=== PATIENT | female | born 1950 | race Caucasian/White ===

== ENCOUNTER 2019-12-13 20:14 | Inpatient (IN) | payer SELFPAY ==
--- NOTE | 2019-12-13 20:32 | PDOC ---
History of Present Illness - General Chief Complaint: Weakness Stated Complaint: WEAKNESS History Source: Patient, EMS, Old Records Exam Limitations: No Limitations - History of Present Illness Initial Comments: 12/13/19 20:31 Chitra Braun is a Yi-speaking 69F with PMH significant for aortic stent plac ement one month ago, HTN, CKD, anemia, COVID-19 c/b PE on Coumadin, BIBA for generalized weakness. Kirsty Martin is daughter who lives with patient, #[phone]. 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 Poor oral intake but tolerating PO. Denies sick contacts, fever, chest pain, SOB, abd pain, C/D. Denies urinary sx but has low urine output. Had this problem a week ago, was admitted at [facility] for this. Ascending aortic repair done at [facility] ~a month ago. Last known EF ~40%. Denies any alcohol/drugs/tobacco. Takes many medications but does not know what they are, taking daily. Past History - Medical History Allergies/Adverse Reactions: Allergies Allergy/AdvReac Type Severity Reaction Status Date / Time No Known Allergies Allergy Verified 12/13/19 20:22 Home Medications: Ambulatory Orders Apixaban [Eliquis] 5 mg PO BID 11/24/19 Aspirin [Aspirin EC] 81 mg PO DAILY 11/24/19 Carvedilol [Coreg -] 25 mg PO BID 11/24/19 Famotidine 20 mg PO DAILY 11/24/19 Ferrous Sulfate 325 mg PO DAILY 11/24/19 Furosemide [Lasix] 40 mg PO DAILY 11/24/19 Hydralazine HCl 10 mg PO TID 11/24/19 Irbesartan [Avapro] 300 mg PO DAILY 11/24/19 Isosorbide Mononitrate [Isosorbide Mononitrate ER] 30 mg PO DAILY 11/24/19 Cardiac Disorders: (CHF) COPD: No HTN: Yes - Surgical History Abdominal Surgery: Yes (Thoracic Aorta repair(Ascending aorta stent) - Reproductive History Is Patient Now?: No - Immunization History Immunization Up to Date: Yes - Psycho-Social/Smoking History Smoking History: Never smoked Have you smoked in the past 12 months: No Information on smoking cessation initiated: No - Substance Abuse Hx (Audit-C & DAST Scrn) How often the patient has a drink containing alcohol: Never Score: In Men: 4 or > Positive; In Women: 3 or > Positive: 0 Screen Result (Pos requires Nsg. Audit-10AR): Negative In the last yr the pt used illegal drug/Rx for NonMed reason: No Score: Yes response is considered Positive: 0 Screen Result (Positive result requires Nsg. DAST-10): Negative Review of Systems - Review of Systems Able to Perform ROS?: Yes Constitutional: Yes: Weakness. No: Diaphoresis, Fever HEENTM: No: Symptoms Reported Respiratory: No: Symptoms reported Cardiac (ROS): No: Symptoms Reported ABD/GI: No: Symptoms Reported : No: Symptoms Reported Musculoskeletal: No: Symptoms Reported Integumentary: No: Symptoms Reported Endocrine: No: Symptoms Reported Hematologic/Lymphatic: No: Symptoms Reported All Other Systems: Reviewed and Negative *Physical Exam - Vital Signs Last Vital Signs Temp Pulse Resp BP Pulse Ox 73 18 112/59 L 100 12/13/19 20:22 12/13/19 20:22 12/13/19 20:22 12/13/19 20:22 - Physical Exam General Appearance: Yes: Nourished, Other (resting in bed in NAD, but appears very tired). No: Appropriately Dressed, Apparent Distress, Obese HEENT: positive: EOMI, LIZETT, Normal ENT Inspection, Normal Voice, Symmetrical, Pharynx Normal, Hearing Grossly Normal. negative: Scleral Icterus (R), Scleral Icterus (L), Pharyngeal Erythema, Tonsillar Exudate, Tonsillar Erythema Neck: positive: Normal Thyroid, Supple. negative: Tender, Rigid, Lymphadenopathy (R), Lymphadenopathy (L), Tender lateral, Tender midline Respiratory/Chest: positive: Lungs Clear, Normal Breath Sounds. negative: Chest Tender, Respiratory Distress, Accessory Muscle Use, Labored Respiration, Rapid RR, Decreased Breath Sounds, Crackles, Rales, Rhonchi, Stridor, Wheezing Cardiovascular: positive: Regular Rhythm, Regular Rate. negative: Murmur, Tachycardia Gastrointestinal/Abdominal: positive: Normal Bowel Sounds, Tender (LLQ), Flat, Soft. negative: Organomegaly, Pulsatile Mass, Guarding, Rebound Musculoskeletal: positive: Normal Inspection. negative: CVA Tenderness, Decreased Range of Motion, Vertebral Tenderness Extremity: positive: Normal Capillary Refill, Normal Inspection, Normal Range of Motion, Pelvis Stable. negative: Tender, Pedal Edema, Swelling, Calf Tenderness Integumentary: positive: Normal Color, Dry Neurologic: positive: Fully Oriented, Alert, Normal Mood/Affect, Normal Response, Motor Strength 5/5. negative: Facial Droop, Sensory Deficit ED Treatment Course - LABORATORY CBC & Chemistry Diagram: 12/13/19 Unknown 12/13/19 Unknown Medical Decision Making - Medical Decision Making 12/13/19 20:31 Patient presents with generalized weakness, has known history of ascending aortic aneurysm repair, EF 40%, anemia, CKD not on HD, PE on AC. Per chart review formerly on Eliquis, ? change to Coumadin, patient unclear on which medicines she takes. No obvious pathology noted on exam, VSS, but has many possible etiologies for weakness including anemia, CKD, cardiac pathology such as pericardial effusion or CHF, hypothyroidism. Rectal temp 98.9F. Getting labs, CXR/ECG, UA/UC. Given extensive history, merits admission for further evaluation. 12/13/19 21:33 Labs notable for: - WBC 8.4, higher than normal, low likely 2/2 CKD - Coags WNL - Cr 5.5, up from 5.0 prior, consistent with ESRD with eGFR ~8. - trop 0.06. at baseline leak per prior labs - BNP 97603.9, elevated consistent with CHF but decreased from 2 weeks prior. 12/13/19 21:41 CXR shows large heart with aortic stent in place, possible bilateral pleural effusions. Per prior CT 2 weeks ago has known L>R pleural effusions and pericardial effusion that explains cardiomegaly. 12/13/19 21:50 ECG low voltage, NSR with incomplete RBBB, HR 66, QTc 507, no MUNDO/D or TWI. 12/13/19 21:59 Patient merits admission for worsening renal function, known aortic stenting and low EF, anemia, evidence of CHF without overload on exam, further evaluation of pleural effusions and cardiology evaluation. 12/13/19 23:17 Discussed case with admitting team, accepts for admission to [facility]. Discharge - Discharge Information Problems reviewed: Yes Clinical Impression/Diagnosis: Weakness, ESRD (end stage renal disease), Pleural effusion Anemia Qualifiers: Anemia type: unspecified type Qualified Code(s): D64.9 - Anemia, unspecified CHF (congestive heart failure) Qualifiers: Heart failure type: unspecified Heart failure chronicity: chronic Qualified Code(s): I50.9 - Heart failure, unspecified Condition: Guarded - Admission Yes - Follow up/Referral - Patient Discharge Instructions - Post Discharge Activity
[2019-12-13] MEDS ORDERED: SODIUM CHLORIDE 0.9% 500 ML INFUS.BAG IV ONE (20:38)
[2019-12-13] MEDS ORDERED: ACETAMINOPHEN 1000 MG/100 ML VIAL (NON FORMULARY) IVPB ONE (20:45)
[2019-12-13] MEDS ORDERED: ONDANSETRON 4 MG/2 ML VIAL IVPUSH ONE (20:59)
[2019-12-13] MEDS ORDERED: FOLIC ACID INJECTION - 1 MG, THIAMINE HCL 100 MG, MULTIVIT INJECTION ADULT 10 ML in SOD... IVPB ONE (20:59)
[2019-12-13 21:04] LABS: BASO % 0.8 % (0-2.0); EOS % 3.5 % (0-4.5); HEMATOCRIT 25.6 % (32.4-45.2); HEMOGLOBIN 8.4 GM/dL (10.7-15.3); LYMPH % 13.8 % (8-40); MCH 27.5 pg (25.7-33.7); MCHC 32.7 g/dl (32.0-36.0); MEAN CELL VOLUME 83.9 fl (80-96); MEAN PLT VOLUME 9.3 fl (7.5-11.1); MONO % 10.6 % (3.8-10.2); NEUT % 71.3 % (42.8-82.8); PLATELET COUNT 226 K/MM3 (134-434); RBC 3.06 M/mm3 (3.60-5.2); RDW 18.9 % (11.6-15.6); WHITE BLOOD COUNT 5.4 K/mm3 (4.0-10.0)
--- OUTSIDE RECORDS SUMMARY | 2019-12-13 21:04 | XMS ---
:1950 Author [facility] Support Name Relationship Address Phone RE Unavailable Unavailable Unavailable RE Unavailable Unavailable Unavailable GONZALEZ DAUGHTER [address] [place] [address] GONZALEZ Child [address] [place] [address] Re-disclosure Warning The records that you are about to access may contain information from federally- assisted alcohol or drug abuse programs. If such information is present, then the following federally mandated warning applies: This information has been disclosed to you from records protected by federal confidentiality rules (42 CFR part 2). The federal rules prohibit you from making any further disclosure of this information unless further disclosure is expressly permitted by the written consent of the person to whom it pertains or as otherwise permitted by 42 CFR part 2. A general authorization for the release of medical or other information is NOT sufficient for this purpose. The Federal rules restrict any use of the information to criminally investigate or prosecute any alcohol or drug abuse patient.The records that you are about to access may contain highly sensitive health information, the redisclosure of which is protected by Article 27-F of the [facility] Public Health law. If you continue you may haveaccess to information: Regarding HIV / AIDS; Provided by facilities licensed or operated by the [facility] Office of Mental Health; or Provided by the [facility] Office for People With Developmental Disabilities. If such information is present, then the following [facility] mandated warning applies: This information has been disclosed to you from confidential records which are protected by state law. State law prohibits you from making any further disclosure of this information without the specific written consent of the person to whom it pertains, or as otherwise permitted by law. Any unauthorized further disclosure in violation of state law may result in a fine or correction sentence or both. A general authorization for the release of medical or other information is NOT sufficient authorization for further disclosure. Insurance Providers Payer name Policy type Policy ID Covered Covered alliance party's Policy P salvador / Coverage alliance party ID relationship to [place] [employer] ormation type winn LOCAL [id number] - [id number] [facility] SELF PAY SP INSURANCE Results ID Date Data Source [id number] 11/24/2019 03:41:00 PM EDT [facility] Name Value Range Interpretation Description Data Sup porting Code Source(s) Document(s ) SARS [facility] coronavirus 2 RNA This lab was ordered by [facility] and reported by [facility]. ID Date Data Source [id number] 11/13/2019 07:16:00 PM EDT [facility] Name Value Range Interpretation Description Data Sup porting Code Source(s) Document(s ) SARS-CoV-2 [facility] (COVID-19) RNA panel - Unspecified specimen by CELENA with probe detection This lab was ordered by [facility] and reported by [facility]. ID Date Data Source [id number] 11/12/2019 03:38:00 PM EDT [facility] Name Value Range Interpretation Description Data Sup porting Code Source(s) Document(s ) SARS-CoV-2 [facility] (COVID-19) RNA panel - Unspecified specimen by CELENA with probe detection This lab was ordered by [facility] and reported by [facility]. ID Date Data Source [id number] 11/06/2019 09:20:00 AM EDT [facility] Name Value Range Interpretation Description Data Sup porting Code Source(s) Document(s ) SARS-CoV-2 [facility] (COVID-19) RNA panel - Unspecified specimen by CELENA with probe detection This lab was ordered by [facility] and reported by [facility]. ID Date Data Source [id number] 11/03/2019 09:50:00 AM EDT [facility] Name Value Range Interpretation Description Data Sup porting Code Source(s) Document(s ) SARS-CoV-2 [facility] (COVID-19) RNA panel - Unspecified specimen by CELENA with probe detection This lab was ordered by [facility] and reported by [facility]. ID Date Data Source [id number] 10/30/2019 01:05:00 AM EDT [facility] Name Value Range Interpretation Description Data Sup porting Code Source(s) Document(s ) SARS-CoV-2 [facility] (COVID-19) RNA panel - Unspecified specimen by CELENA with probe detection This lab was ordered by [facility] and reported by [facility]. ID Date Data Source [id number] 10/29/2019 05:58:00 AM EDT [facility] Name Value Range Interpretation Description Data Sup porting Code Source(s) Document(s ) SARS-CoV-2 [facility] (COVID-19) RNA panel - Unspecified specimen by CELENA with probe detection This lab was ordered by [facility]) and reported by [facility]. ID Date Data Source [id number] 10/28/2019 01:52:00 AM EDT [facility] Name Value Range Interpretation Code Description Data Diann rce(s) Supporting Document(s ) Overall [facility] Result: This lab was ordered by [facility] and reported by [facility]. ID Date Data Source [id number] 07/23/2019 07:36:00 PM EDT [facility] Name Value Range Interpretation Code Description Data Diann rce(s) Supporting Document(s ) Overall [facility] Result: This lab was ordered by [facility] and reported by [facility]. Procedure
[2019-12-13] MEDS ORDERED: ACETAMINOPHEN INJECTION 100 ML IVPB ONE (21:11)
[2019-12-13 21:17] LABS: INR 0.98 (0.83-1.09); PROTHROMBIN TIME (PATIENT) 12.1 SEC (9.7-13.0)
[2019-12-13 21:20] LABS: ACTIVATED PTT 27.7 SECONDS (25.2-36.5)
[2019-12-13 21:30] LABS: POTASSIUM 3.6 mmol/L (3.5-5.1)
[2019-12-13 21:32] LABS: CALCIUM 8.6 mg/dL (8.5-10.1)
[2019-12-13 21:33] LABS: ALBUMIN 2.5 g/dl (3.4-5.0); BLOOD UREA NITROGEN 83.8 mg/dL (7-18)
[2019-12-13 21:36] LABS: CREATININE 5.5 mg/dL (0.55-1.3)
[2019-12-13 21:38] LABS: BILIRUBIN,TOTAL 0.3 mg/dL (0.2-1); TOT PROT 6.6 g/dl (6.4-8.2)
[2019-12-13 21:42] LABS: N-TERMINAL BNP 14845.9 pg/ml (5-125)
[2019-12-13] MEDS ORDERED: FUROSEMIDE 40 MG/4 ML INJECTABLE VIAL IVPUSH ONE (22:13)
[2019-12-13] MEDS ORDERED: FUROSEMIDE 40 MG/4 ML INJECTABLE VIAL ONE (22:29)
--- NOTE | 2019-12-13 23:07 | PN ---
Teaching Attending Note Name of Resident: Ed Cooper ATTENDING PHYSICIAN STATEMENT I saw and evaluated the patient. I reviewed the resident's note and discussed the case with the resident. I agree with the resident's findings and plan as documented. SUBJECTIVE: Patient is a 69 year old woman with a PMH of Aortic stent placement one month a go, Pericardial effusion, HTN, ESRD, Anemia, COVID-19 complicated by PE (on ?Coumadin) brought to the for generalized weakness. 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 Poor oral intake but tolerating PO. Had this problem a week ago, was admitted at [facility] for this. Ascending aortic repair done at [facility] about a month ago. Patient denies chest pain, shortness of breath, abdominal pain, headache, palpitations, fever, chills, nausea, vomiting, diarrhea, constipation, dysuria, frequency, urgency, melena, hematochezia or hematuria. Denies alcohol, tobacco or illicit drug use. No sick contacts or recent travels. Family history is unremarkable. OBJECTIVE: Alert Vital Signs Period Temp Pulse Resp BP Sys/Marin Pulse Ox Last 24 Hr 98.8 F 67-73 17-18 112-150/59-82 99-100 HEENT: No Jaundice, eye redness or discharge, PERRLA, EOMI. Normocephalic, atraumatic. External ears are normal and hearing is grossly intact. No nasal discharge. Neck: Supple, nontender. No palpable adenopathy or thyromegaly. No JVD Chest: Good effort. Clear to auscultation and percussion. Heart: Regular. No S3, rub or murmur Abdomen: Not distended, soft, nontender and no HSM. No rebound or guarding. Normal bowel sounds. Ext: Peripheral pulses intact. No leg edema. Skin: Warm and dry. No petechiae, rash or ecchymosis. Neuro: Alert. Oriented x3. CN 2-12 grossly intact. Sensation grossly intact in all four extremities and DTR are symmetric. Psych: Appropriate mood and affect. Good insight. Home Medications Medication Instructions Recorded Apixaban [Eliquis] 5 mg PO BID 11/24/19 Aspirin [Aspirin EC] 81 mg PO DAILY 11/24/19 Carvedilol [Coreg -] 25 mg PO BID 11/24/19 Famotidine 20 mg PO DAILY 11/24/19 Ferrous Sulfate 325 mg PO DAILY 11/24/19 Furosemide [Lasix] 40 mg PO DAILY 11/24/19 Hydralazine HCl 10 mg PO TID 11/24/19 Irbesartan [Avapro] 300 mg PO DAILY 11/24/19 Isosorbide Mononitrate [Isosorbide 30 mg PO DAILY 11/24/19 Mononitrate ER] Abnormal Lab Results 12/13/19 12/13/19 Unknown Unknown RBC 3.06 L Hgb 8.4 L Hct 25.6 L RDW 18.9 H Monocytes % 10.6 H Chloride 97 L BUN 83.8 H Creatinine 5.5 H Random Glucose 147 H Magnesium 3.0 H AST 38 H Creatine Kinase 301 H Troponin I 0.06 H B-Natriuretic Peptide 22661.9 H Albumin 2.5 L Current Medications Generic Name Dose Route Start Last Admin Trade Name Freq PRN Reason Stop Dose Admin Folic Acid 1 mg/ Thiamine HCl 1,000 mls @ 125 mls/hr 12/13/19 20:59 12/13/19 21:54 100 mg/ Multivitamins/Minerals IVPB 12/14/19 04:58 125 mls/hr 10 ml/ Sodium Chloride ONCE ONE Administration ASSESSMENT AND PLAN: 1. Weakness/ESRD/Anemia/CHF - Weakness likely multifactorial including sequelae of COVID-19 infection, uremia, CHF and anemia. Will get a head CT stat. CXR shows cardiomegaly, aortic stent, unfolded aorta with no evidence of acute lung disease. Urinalysis pending. ECHO from 12/05/2019 showed mild asymmetric LVH and LVEF of 50%. EKG shows NSR at 66/minute and QTc 507, IRBBB with no significant acute ischemic ST-T wave changes. Not significantly changed compared to prior EKG. Initial troponin is 0.06. Will avoid drugs that may prolong QTc. Elevated troponin may be due to diminished clearance and/or demand ischemia, but will rule out ACS. ?No longer on Eliquis. Will clarify current anticoagulation with her PCP. Will admit to telemetry, trend troponin, repeat EKG, get ECHO, carotid doppler, head CT, do speech and swallow evaluation, neurochecks and implement fall/aspiration/seizure precautions. Consult Cardiology/PT/Neurology. Consult Nephrology for ESRD care. For now will monitor urine output, avoid nephrotoxic agents such as NSAIDS, aminoglycosides, contrast dyes and certain Alternative medicine products. Low BP limits the use of IV Lasix. Will restrict dietary salt intake, monitor and replete electrolytes, get daily weight and consult Nephrology to arrange for hemodialysis. Viral testing for COVID-19 ordered and patient placed on airborne, droplet and contact isolation. Started on supplemental oxygen via nasal cannula. Will continue comprehensive care for all of patients comorbid conditions. 2. Hypoalbuminemia - Possibly due to combined effects of malnutrition and inflammation associated with comorbid conditions. Will ensure adequate dietary protein intake and also consult advertising assistant. Urinalysis pending. 3. Anemia Likely chiefly due to CKD. Will do basic anemia work up including serial stool guaiacs, reticulocyte count and iron studies. Would benefit from Procrit therapy once iron replete. 4. Hypertension Will hold antihypertensive drugs for now. Restart suitable outpatient antihypertensive drugs when clinically appropriate. Subsequently, will revise regimen to ensure [id number] excellent BP control. Patient counseled on the injurious effects of uncontrolled hypertension. Nonpharmacologic measures to control hypertension like weight loss, salt restriction and exercise stressed. Importance of adherence to treatment regimen and attainment of normotension emphasized. 5. DVT prophylaxis - Heparin 5000u sq tid. 6. Advance directives - Full code
--- OUTSIDE RECORDS SUMMARY | 2019-12-13 23:39 | XMS ---
:1950 Author Organization [facility] Support Name Relationship Address Phone RE, RETIRED Unavailable Unavailable Unavailable RE Unavailable Unavailable Unavailable SEPIDEH GONZALEZ DAUGHTER [address] [place] [address] SEPIDEH GONZALEZ Child [address] [place] [address] Re-disclosure Warning The records that you are [...] is protected by Article 27-F of the [facility] Public Health law. If you continue you may haveaccess to information: Regarding HIV / AIDS; Provided by facilities licensed or operated by the [facility] Office of Mental Health; or Provided by the [facility] Office for People With Developmental Disabilities. If such information is present, then the following [facility] mandated warning applies: This information has [...] law may result in a fine or mcfp sentence or both. A general authorization for the release of medical or other information is NOT sufficient authorization for further disclosure. Insurance Providers Payer name Policy type Policy ID Covered Covered democrat's Policy P salvador / Coverage democrat ID relationship to [employer] ormation type winn SELF PAY SP INSURANCE LOCAL [id number] - [id number] [facility] Results ID Date Data Source [id number] 11/24/2019 03:41:00 PM EDT [facility] Name Value Range Interpretation Description Data Sup porting Code Source(s) Document(s ) SARS [facility] coronavirus 2 RNA This lab was ordered by [facility] and reported by [facility]. ID Date Data Source [id number] 11/13/2019 07:16:00 PM EDT [facility] Name Value Range Interpretation Description Data Sup porting Code Source(s) Document(s ) SARS-CoV-2 [facility] (COVID-19) RNA panel - Unspecified specimen by CELENA with probe detection This lab was ordered by [facility] and reported by [facility]. ID Date Data Source [id number] 11/12/2019 03:38:00 PM EDT [facility] Name Value Range Interpretation Description Data Sup porting Code Source(s) Document(s ) SARS-CoV-2 [facility] (COVID-19) RNA panel - Unspecified specimen by CELENA with probe detection This lab was ordered by [facility] and reported by [facility]. ID Date Data Source [id number] 11/06/2019 09:20:00 AM EDT [facility] Name Value Range Interpretation Description Data Sup porting Code Source(s) Document(s ) SARS-CoV-2 [facility] (COVID-19) RNA panel - Unspecified specimen by CELENA with probe detection This lab was ordered by [facility]) and reported by [facility]. ID Date Data Source [id number] 11/03/2019 09:50:00 AM EDT [facility] Name Value Range Interpretation Description Data Sup porting Code Source(s) Document(s ) SARS-CoV-2 [facility] (COVID-19) RNA panel - Unspecified specimen by CELENA with probe detection This lab was ordered by [facility]) and reported by [facility]. ID Date Data Source [id number] 10/30/2019 01:05:00 AM EDT [facility] Name Value Range Interpretation Description Data Sup porting Code Source(s) Document(s ) SARS-CoV-2 [facility] (COVID-19) RNA panel - Unspecified specimen by CELENA with probe detection This lab was ordered by [facility]) and reported by [facility]. ID Date Data Source [id number] 10/29/2019 05:58:00 AM EDT [facility] Name Value Range Interpretation Description Data Sup porting Code Source(s) Document(s ) SARS-CoV-2 [facility] (COVID-19) RNA panel - Unspecified specimen by CELENA with probe detection This lab was ordered by [facility]) and reported by [facility]. ID Date Data Source [id number] 10/28/2019 01:52:00 AM EDT [facility] Name Value Range Interpretation Code Description Data Diann rce(s) Supporting Document(s ) Overall [facility] Result: This lab was ordered by [facility] and reported by [facility]. ID Date Data Source [id number] 07/23/2019 07:36:00 PM EDT [facility] Name Value Range Interpretation Code Description Data Diann rce(s) Supporting Document(s ) Overall [facility] Result: This lab was ordered by [facility] and reported by [facility]. Procedure
[2019-12-14 01:03] LABS: EPI CELLS 13 /uL (0-25.1); HYALINE CASTS 1 /uL (0-3.1); PH,URINE 5.5 (5.0-8.0); URINE APPEARANCE CLEAR; URINE BACTERIA 901 /uL (0-1359); URINE BILIRUBIN NEGATIVE (NEGATIVE); URINE COLOR YELLOW; URINE GLUCOSE (UA) NEGATIVE (NEGATIVE); URINE KETONE NEGATIVE (NEGATIVE); URINE LEUK ESTERASE 2+ (NEGATIVE); URINE NITRITE NEGATIVE (NEGATIVE); URINE PROTEIN 2+ (NEGATIVE); URINE RBC 21 /uL (0-23.9); URINE UROBILINOGEN 0.2 mg/dL (0.2-1.0); URINE WBC 211 /uL (0-25.8)
[2019-12-14 01:19] VITALS: BMI 26.9
--- NOTE | 2019-12-14 03:57 | HP ---
CHIEF COMPLAINT: Generalized weakness PCP: Vascular surgeon: Dr. Cervantes ([phone]) Heading Maker : Dr. Franky Marte HISTORY OF PRESENT ILLNESS: 69F w/ PMHx of CHF, Ascending AA s/p Aortic Stent (11/08), COVID19 w/ resultant PE, CKD, HTN, HLD, and Chronic Anemia presents to the ED after endorsing several hours of generalized weakness, lightheadedness, dizziness, changes in vision, decreased appetite and nausea w/o vomiting. Ptn was recently admitted to [facility] on 11/23, for epistaxis w/ generalized weakness, and an incidental finding of a large pericardial effusion w/ resultant transfer to [facility] for further management. Ptn did not have records on her at the time of presentation. Patient states she is taking 2 blood pressure medications but is unsure of what they were. Patient was previously on AC, and during her previous admission an IVC filter was placed. As per ptn and ptn's daughter, she is no longer on AC. Patient had received 1 banana bag in the ED prior to interview, and stated that the weakness had partially resolved. ER course was notable for: (1)CXR: Small left pleural effusion with a left lower lobe infiltrate There is significant cardiomegaly. There is a moderate to large pericardial effusion. Thickness varies between 1.1 and 2.1 cm (2)1 Banana Bag (3) Recent Travel: PAST MEDICAL HISTORY: As above PAST SURGICAL HISTORY: Aortic Stent placement [facility] 11/08 Social History: Smoking: None Alcohol: None Drugs: None Allergies No Known Allergies Allergy (Verified 12/13/19 20:22) HOME MEDICATIONS: Home Medications Medication Instructions Recorded Apixaban [Eliquis] 5 mg PO BID 11/24/19 Aspirin [Aspirin EC] 81 mg PO DAILY 11/24/19 Carvedilol [Coreg -] 25 mg PO BID 11/24/19 Famotidine 20 mg PO DAILY 11/24/19 Ferrous Sulfate 325 mg PO DAILY 11/24/19 Furosemide [Lasix] 40 mg PO DAILY 11/24/19 Hydralazine HCl 10 mg PO TID 11/24/19 Irbesartan [Avapro] 300 mg PO DAILY 11/24/19 Isosorbide Mononitrate [Isosorbide 30 mg PO DAILY 11/24/19 Mononitrate ER] REVIEW OF SYSTEMS CONSTITUTIONAL: Absent: fever, chills, diaphoresis, generalized weakness, malaise, loss of appetite, weight change HEENT: Absent: rhinorrhea, nasal congestion, throat pain, throat swelling, difficulty swallowing, mouth swelling, ear pain, eye pain, visual changes CARDIOVASCULAR: Absent: chest pain, syncope, palpitations, irregular heart rate, lightheadedness, peripheral edema RESPIRATORY: Absent: cough, shortness of breath, dyspnea with exertion, orthopnea, wheezing, stridor, hemoptysis GASTROINTESTINAL: Absent: abdominal pain, abdominal distension, nausea, vomiting, diarrhea, constipation, melena, hematochezia GENITOURINARY: Absent: dysuria, frequency, urgency, hesitancy, hematuria, flank pain, genital pain MUSCULOSKELETAL: Absent: myalgia, arthralgia, joint swelling, back pain, neck pain SKIN: Absent: rash, itching, pallor HEMATOLOGIC/IMMUNOLOGIC: Absent: easy bleeding, easy bruising, lymphadenopathy, frequent infections ENDOCRINE: Absent: unexplained weight gain, unexplained weight loss, heat intolerance, cold intolerance NEUROLOGIC: Absent: headache, focal weakness or paresthesias, dizziness, unsteady gait, seizure, mental status changes, bladder or bowel incontinence PSYCHIATRIC: Absent: anxiety, depression, suicidal or homicidal ideation, hallucinations. PHYSICAL EXAMINATION Vital Signs - 24 hr 12/13/19 12/13/19 12/13/19 20:22 20:45 21:41 Temperature 98.8 F Pulse Rate 73 Pulse Rate [ Radial] Respiratory 18 Rate Blood Pressure 112/59 L Blood Pressure [Left Arm] O2 Sat by Pulse 100 100 Oximetry (%) 12/13/19 12/13/19 12/14/19 22:33 23:49 00:08 Temperature Pulse Rate Pulse Rate [ 67 67 Radial] Respiratory 17 17 Rate Blood Pressure Blood Pressure 150/82 148/82 [Left Arm] O2 Sat by Pulse 99 99 99 Oximetry (%) 12/14/19 12/14/19 01:00 01:03 Temperature 97.9 F Pulse Rate 65 Pulse Rate [ Radial] Respiratory 20 Rate Blood Pressure 136/67 Blood Pressure [Left Arm] O2 Sat by Pulse 95 95 Oximetry (%) GENERAL: Awake, alert, and fully oriented, in no acute distress. HEAD: Normal with no signs of trauma. EYES: Pupils equal, round and reactive to light, extraocular movements intact, sclera anicteric, conjunctiva clear. No lid lag. EARS, NOSE, THROAT: Ears normal, nares patent, oropharynx clear without exudates. Moist mucous membranes. NECK: Normal range of motion, supple without lymphadenopathy, JVD, or masses. LUNGS: Breath sounds equal, clear to auscultation bilaterally. No wheezes, and no crackles. No accessory muscle use. HEART: Regular rate and rhythm, normal S1 and S2 without murmur, rub or gallop. ABDOMEN: Soft, nontender, not distended, normoactive bowel sounds, no guarding, no rebound, no masses. No hepatomegaly or splenomegaly. MUSCULOSKELETAL: Normal range of motion at all joints. No bony deformities or tenderness. No CVA tenderness. UPPER EXTREMITIES: 2+ pulses, warm, well-perfused. No cyanosis. No clubbing. No peripheral edema. LOWER EXTREMITIES: 2+ pulses, warm, well-perfused. No calf tenderness. No peripheral edema. NEUROLOGICAL: Normal speech. Normal gait. PSYCHIATRIC: Cooperative. Good eye contact. Appropriate mood and affect. SKIN: Warm, dry, normal turgor, no rashes or lesions noted, normal capillary refill. Laboratory Results - last 24 hr 12/13/19 12/13/19 12/13/19 00:00 Unknown Unknown WBC 5.4 RBC 3.06 L Hgb 8.4 L Hct 25.6 L MCV 83.9 MCH 27.5 MCHC 32.7 RDW 18.9 H Plt Count 226 D MPV 9.3 Absolute Neuts (auto) 3.8 Neutrophils % 71.3 Lymphocytes % 13.8 D Monocytes % 10.6 H Eosinophils % 3.5 Basophils % 0.8 Nucleated RBC % 0 PT with INR 12.10 INR 0.98 PTT (Actin FS) 27.7 Sodium Potassium Chloride Carbon Dioxide Anion Gap BUN Creatinine Est GFR (CKD-EPI)AfAm Est GFR (CKD-EPI)NonAf Random Glucose Calcium Magnesium Total Bilirubin AST ALT Alkaline Phosphatase Creatine Kinase Creatine Kinase Index CK-MB (CK-2) Troponin I B-Natriuretic Peptide Total Protein Albumin TSH Urine Color Yellow Urine Appearance Clear Urine pH 5.5 Ur Specific Mccoy 1.010 Urine Protein 2+ H Urine Glucose (UA) Negative Urine Ketones Negative Urine Blood Negative Urine Nitrite Negative Urine Bilirubin Negative Urine Urobilinogen 0.2 Ur Leukocyte Esterase 2+ H Urine WBC (Auto) 211 Urine RBC (Auto) 21 Urine Casts (Auto) 1 U Epithel Cells (Auto) 13 Urine Bacteria (Auto) 901 12/13/19 Unknown WBC RBC Hgb Hct MCV MCH MCHC RDW Plt Count MPV Absolute Neuts (auto) Neutrophils % Lymphocytes % Monocytes % Eosinophils % Basophils % Nucleated RBC % PT with INR INR PTT (Actin FS) Sodium 136 Potassium 3.6 Chloride 97 L Carbon Dioxide 29 Anion Gap 10 BUN 83.8 H Creatinine 5.5 H Est GFR (CKD-EPI)AfAm 8.42 Est GFR (CKD-EPI)NonAf 7.26 Random Glucose 147 H Calcium 8.6 Magnesium 3.0 H Total Bilirubin 0.3 AST 38 H ALT 27 Alkaline Phosphatase 105 Creatine Kinase 301 H Creatine Kinase Index 0.8 CK-MB (CK-2) 2.6 Troponin I 0.06 H B-Natriuretic Peptide 96949.9 H Total Protein 6.6 Albumin 2.5 L TSH 3.73 Urine Color Urine Appearance Urine pH Ur Specific Mccoy Urine Protein Urine Glucose (UA) Urine Ketones Urine Blood Urine Nitrite Urine Bilirubin Urine Urobilinogen Ur Leukocyte Esterase Urine WBC (Auto) Urine RBC (Auto) Urine Casts (Auto) U Epithel Cells (Auto) Urine Bacteria (Auto) ASSESSMENT/PLAN: 69F w/ PMHx of CHF, Ascending AA s/p Aortic Stent (11/08), COVID19 w/ resultant PE, CKD, HTN, HLD, and Chronic Anemia presents to the ED after endorsing several hours of generalized weakness, lightheadedness, dizziness, changes in vision, decreased appetite and nausea w/o vomiting. Admitted for generalized weakness likely multifactorial in origin. GENERALIZED WEAKNESS OF UNKNOWN ORIGIN POSSIBLY 2/2 DECREASED PO INTAKE vs Hx OF PERICARDIAL EFFUSION vs CHF -Previous admission on 11/24/2019, with resultant transfer to [facility]. -Admits to decreased PO intake -Improved w/ 1 bannana bag given in ED -Orthostatics Negative -CXR: Small left pleural effusion with a left lower lobe infiltrate There is significant cardiomegaly. There is a moderate to large pericardial effusion. Thickness varies between 1.1 and 2.1 cm -ECHO (12/05/2019): EF 50% Mild asymmetric LV hypertropy, mild hypkinesis of basal inferolateral wall; LA moderately dilated; moderate MR; mild TR; Moderate pericardial effusion w/ 20-25% variation in mitral inflow velocity. Does not meet criteria for tampenade. -Consult Cards -ECHO if Cardiology deems appropriate MILD TROPONEMIA LIKELY 2/2 DEMAND ISCHEMIA -Trops: 0.06 on Admission -EKG: NSR w/ incomplete RBBB; QTc 507 -Trend troponins for any increase HISTORY OF CONGESTIVE HEART FAILURE -No signs clinical signs of fluid overload -Necessary to obtain medication from PCP/[facility] AORTIC STENT PLACEMENT 2/2 ASCENDING AORTIC ANEYRISM REPAIR (11/08) -Dr. Cervantes at [facility] -Ptn not on any AC as per ptn and daughter -Cardiology consulted for input -Obtain [facility] history HISTORY OF COVID19 w/ PULMONARY EMBOLISM -DVT PPx w/ SCDs 2/2 prior bleeding episodes -IVC Filter placed at [facility] at last visit need to confirm w/ imaging -Patient not on oral home DVT meds as of recent [facility] admission last week -Clarify medications w/ [facility] or Pharmacy ([facility]) HISTORY OF CHRONIC KIDNEY DISEASE -Elevated Cr. Prior Admit: (3.7 - 5.0) --> 5.5 -Consult Nephro ANEMIA LIKELY 2/2 CKD -Monitor CBC -Transfuse <8 due prior cardiac hx PPx DVT: Heparin 5000 TID w/ careful monitoring for any bleeding due to prior admission epistaxis, IVC Filter placed at [facility] at last visit need to confirm w/ imaging; Will confirm AC w/ Cardiology FEN -No standing fluids -CMP, Mg, Phos -Diabetic/Sodium DISPO -Admit to tele for further monitoring, and obtain [facility] records Family Medical History Family History: As Documented Visit type - Medication Review Med list reviewed for High Risk Meds patients 65 and older: Yes - Emergency Visit Emergency Visit: Yes ED Registration Date: 12/13/19 Care time: The patient presented to the Emergency Department on the above date and was hospitalized for further evaluation of their emergent condition. - New Patient This patient is new to me today: Yes Date on this admission: 12/13/19 - Critical Care Critical Care patient: No ATTENDING PHYSICIAN STATEMENT I saw and evaluated the patient. I reviewed the resident's note and discussed the case with the resident. I agree with the resident's findings and plan as documented. SUBJECTIVE: OBJECTIVE: ASSESSMENT AND PLAN:
--- NOTE | 2019-12-14 07:55 | PN ---
Progress Note, Physician Chief Complaint: Seen and examined in bed. Recently discharged from [facility] after being treated for severe epistaxis in setting of apixaban-transfered to [facility] for pericardial effusion and treated with diuretics. Now with rising Cr above baseline. States she has extremely lethargy and nausea overnight. COVID + in 09/24 with subsquent negativ pcr-repeat now pending History of Present Illness: 69F w/ PMHx of CHF, Ascending AA s/p Aortic Stent (11/08), COVID19 w/ resultant PE, CKD, HTN, HLD, and Chronic Anemia presents to the ED after endorsing several hours of generalized weakness, lightheadedness, dizziness, changes in vision, decreased appetite and nausea w/o vomiting. Admitted for generalized weakness likely multifactorial in origin. - Current Medication List Current Medications: Active Medications Heparin Sodium (Porcine) (Heparin -) 5,000 unit SQ TID TAN - Objective Vital Signs: Vital Signs Temperature 97.9 F 12/14/19 01:03 Pulse Rate 73 12/14/19 03:14 Respiratory Rate 20 12/14/19 03:14 Blood Pressure 137/65 12/14/19 03:14 O2 Sat by Pulse Oximetry (%) 95 12/14/19 01:03 Constitutional: Yes: Well Nourished, No Distress, Calm Eyes: Yes: WNL, Conjunctiva Clear HENT: Yes: WNL, Atraumatic, Normocephalic Neck: Yes: WNL, Supple, Trachea Midline Cardiovascular: Yes: WNL, Regular Rate and Rhythm Respiratory: Yes: WNL, Regular, CTA Bilaterally, Diminished (at bases) Gastrointestinal: Yes: WNL, Normal Bowel Sounds ...Rectal Exam: Yes: Deferred Breast(s): Yes: WNL Extremities: Yes: WNL Edema: Yes Edema: LLE: Trace, RLE: Trace Peripheral Pulses WNL: Yes Peripheral Pulses: Left Radial: 2+, Right Radial: 2+, Left Doralis Pedis: 2+, Right Dorsalis Pedis: 2+, Left Femoral: 2+, Right Femoral: 2+ Integumentary: Yes: WNL Neurological: Yes: WNL, Alert, Oriented ...Motor Strength: WNL Psychiatric: Yes: WNL Labs: CBC, BMP 12/13/19 Unknown 12/13/19 Unknown INR, PTT INR 0.98 (0.83-1.09) 12/13/19 Unknown - ....Imaging Chest X-ray: Image Reviewed (no effusions/infiltartes) Other: Other (TTE:overall mild to moderately decreased left ventricular systolic function (diffuse); ejection fraction 43%,severe left ventricular dilatation,mild to moderate MR,normal right ventricular size,normal right ventricular function,no ,mild pulmonary hypertension small pericardial effusion,severe left atrial dilatation grade II diastolic dysfunction with elevated left atrial pressure) Problem List - Problems (1) Anemia Assessment/Plan: H/H in the setting on CKD c/t monitor Code(s): D64.9 - ANEMIA, UNSPECIFIED Qualifiers: Anemia type: unspecified type Qualified Code(s): D64.9 - Anemia, unspecified (2) ESRD (end stage renal disease) Assessment/Plan: Cr 12/11 on [facility] discharge 5.4-5.[address] carter holding lasix for now renal consultation place Code(s): N18.6 - END STAGE RENAL DISEASE (3) Weakness Assessment/Plan: increasing weakness since discharge from [facility] contributimg factors -dehydration from over diuresis and poo po intake PT ordered Code(s): R53.1 - WEAKNESS (4) Afib Assessment/Plan: episode of AF last admission [id number] score 7 c/wcoreg Code(s): I48.91 - UNSPECIFIED ATRIAL FIBRILLATION (5) Chronic systolic CHF (congestive heart failure) Assessment/Plan: chronic systolic HF as per [facility] records - EF 43% per records from [facility], with recent MPI negative 10/2019 - diuresed at [facility] with 120 mg IV BID and was discharged on lasix 80 mg PO BID - discharge Cr on 12/11 was 5.4 now 5.5 now appears euvolemic hold lasix for now with rising cr c/w hydralazine, imdur, coreg not on ARB due to CKD strict I/Os daily weights Code(s): I50.22 - CHRONIC SYSTOLIC (CONGESTIVE) HEART FAILURE (6) Elevated troponin Assessment/Plan: unlikely ACS indeterminate range, flat trend, EKG no ischemic changes in setting of CKD Code(s): R77.8 - OTHER SPECIFIED ABNORMALITIES OF PLASMA PROTEINS (7) HTN (hypertension) Assessment/Plan: cont carvedilol, hydralazine, isosorbide mononitrate irbesartan held in setting of CKD Code(s): I10 - ESSENTIAL (PRIMARY) HYPERTENSION (8) Pericardial effusion (noninflammatory) Assessment/Plan: moderate effusion seen on echo-transfered to [facility] treated with high dose diuretics now appears euvolemic Code(s): I31.3 - PERICARDIAL EFFUSION (NONINFLAMMATORY) (9) Prophylactic measure Assessment/Plan: FEN Fluids: poor PO intake Electrolytes: monitor & replete as needed Nutrition: cardiac diet DVT moderate risk sq heparin-close watch for bleeding Dispo Maintain as inpatient full code discharge planning Code(s): Z29.9 - ENCOUNTER FOR PROPHYLACTIC MEASURES, UNSPECIFIED (10) Pulmonary embolism Assessment/Plan: recent dx of BL PE in imaging from [facility]-10/25 asymptomatic on presentation lst admission-LE dopplers neg for dvt IVCF placed Code(s): I26.99 - OTHER PULMONARY EMBOLISM WITHOUT ACUTE COR PULMONALE (11) Status post endoscopic repair of thoracic aortic aneurysm (TAA) Assessment/Plan: s/p TEVRA from L SCA to SMA, embolization of celiac artery and repair of sarah common femoral artery 11/07/2019, Code(s): Z86.79 - PERSONAL HISTORY OF OTHER DISEASES OF THE CIRCULATORY SYSTEM; Z98.890 - OTHER SPECIFIED POSTPROCEDURAL STATES (12) Suspected COVID-19 virus infection Assessment/Plan: COVID Suspicion low On RA strict airborne/droplet precautions until resulted Code(s): Z20.828 - CONTACT W AND EXPOSURE TO OTH VIRAL COMMUNICABLE DISEASES Visit type - Emergency Visit Emergency Visit: Yes ED Registration Date: 12/13/19 Care time: The patient presented to the Emergency Department on the above date and was hospitalized for further evaluation of their emergent condition. - New Patient This patient is new to me today: Yes Date on this admission: 12/14/19 - Critical Care Critical Care patient: No - Discharge Referral Referred to [facility] No - Medication Review Med list reviewed for High Risk Meds patients 65 and older: Yes
[2019-12-14] MEDS: HEPARIN NA (PORCINE) 5,000 UNITS/ML 1ML VIAL SQ SCH ×3 (09:28→21:41)
[2019-12-14] MEDS: CARVEDILOL 25 MG TABLET (FP) PO SCH ×2 (09:28→21:41)
[2019-12-14] MEDS: ISOSORBIDE MONONITRATE 30 MG TAB.SR.24H (FP) PO SCH (09:28)
[2019-12-14 09:52] LABS: EPI CELLS 8 /uL (0-25.1); HYALINE CASTS 0 /uL (0-3.1); URINE APPEARANCE CLEAR; URINE BACTERIA 83 /uL (0-1359); URINE BILIRUBIN NEGATIVE (NEGATIVE); URINE COLOR YELLOW; URINE GLUCOSE (UA) NEGATIVE (NEGATIVE); URINE KETONE NEGATIVE (NEGATIVE); URINE LEUK ESTERASE NEGATIVE (NEGATIVE); URINE NITRITE NEGATIVE (NEGATIVE); URINE PROTEIN 1+ (NEGATIVE); URINE RBC 25 /uL (0-23.9); URINE UROBILINOGEN 0.2 mg/dL (0.2-1.0); URINE WBC 10 /uL (0-25.8)
[2019-12-14] MEDS ORDERED: LOSARTAN POTASSIUM 50 MG TABLET PO SCH (10:00)
[2019-12-14] MEDS ORDERED: FUROSEMIDE 40 MG TABLET (FP) PO SCH ×3 (10:00→17:07)
--- NOTE | 2019-12-14 11:09 | EKG ---
Test Reason : Blood Pressure : / mmHG Vent. Rate : 066 BPM Atrial Rate : 066 BPM P-R Int : 150 ms QRS Dur : 092 ms QT Int : 484 ms P-R-T Axes : 046 -21 028 degrees QTc Int : 507 ms NORMAL SINUS RHYTHM INCOMPLETE RIGHT BUNDLE BRANCH BLOCK PROLONGED QT ABNORMAL ECG WHEN COMPARED WITH ECG OF 24-NOV-2019 11:10, NO SIGNIFICANT CHANGE WAS FOUND Confirmed by Timbo Zee MD ([id number]) on 12/14/2019 11:09:01 AM Referred By: Confirmed By:Timbo Zee MD
[2019-12-14 12:09] LABS: BASO % 0.7 % (0-2.0); EOS % 3.5 % (0-4.5); HEMATOCRIT 23.7 % (32.4-45.2); HEMOGLOBIN 7.8 GM/dL (10.7-15.3); MCH 27.6 pg (25.7-33.7); MCHC 32.9 g/dl (32.0-36.0); MEAN PLT VOLUME 9.3 fl (7.5-11.1); MONO % 9.6 % (3.8-10.2); NEUT % 74.2 % (42.8-82.8); PLATELET COUNT 209 K/MM3 (134-434); RBC 2.82 M/mm3 (3.60-5.2); RDW 18.9 % (11.6-15.6); WHITE BLOOD COUNT 5.1 K/mm3 (4.0-10.0)
[2019-12-14 12:16] LABS: INR 0.99 (0.83-1.09)
[2019-12-14 12:30] LABS: POTASSIUM 3.6 mmol/L (3.5-5.1)
[2019-12-14 12:32] LABS: CALCIUM 8.9 mg/dL (8.5-10.1)
[2019-12-14 12:33] LABS: ALBUMIN 2.3 g/dl (3.4-5.0); BLOOD UREA NITROGEN 77.1 mg/dL (7-18)
--- NOTE | 2019-12-14 12:33 | CON.CARD ---
Cardiology Consult (text) - Consultation Consultation Note: Consult Specialty:: cardiology Referred by:: medicine Reason for Consultation:: history of thoracic aorta aneurysm s/p repair - History of Present Illness Chief Complaint: epistaxis History of Present Illness: 69F h/o HTN, CKD, TAA s/p ascending aorta stent graft Dr. Cervantes at [facility] (11/08/2001) p/w weakness. recently admitted for epistaxis, CHF exacerbation. She had been on eliquis as an outpatient which was stopped due to epistaxis, also with significant epistaxis on heparin gtt, aspirin. IVC filter was placed. Was diuresed with IV lasix as well, echo here showed large pericardial effusion for which she was transferred to [facility] for further workup. Follow up echo 12/05 at [facility] showed small effusion with EF 43%. She was diuresed there with lasix 120 mg IV BID, lasix held for rising Cr there peaked at 6.06 on 12/10 and down trended with fluid, on dc Cr was 5.42 and discharged on 12/11 on lasix 80 mg PO BID. Went to ER on day of admission for worsening weakness, dizziness, change in vision and nausea for a few hours prior to admission. no chest pain, palps, dyspnea, edema. - History Source History Provided By: Patient Limitations to Obtaining History: No Limitations - Past Medical History Cardio/Vascular: Yes: Aneurysm, HTN Renal/: Yes: Renal Inusuff ...: No - Smoking History Smoking history: Never smoked Have you smoked in the past 12 months: No Home Medications - Allergies Allergies/Adverse Reactions: Allergies Allergy/AdvReac Type Severity Reaction Status Date / Time No Known Allergies Allergy Verified 12/13/19 20:22 Home Medications Medication Instructions Recorded Apixaban [Eliquis] 5 mg PO BID 11/24/19 Aspirin [Aspirin EC] 81 mg PO DAILY 11/24/19 Carvedilol [Coreg -] 25 mg PO BID 11/24/19 Famotidine 20 mg PO DAILY 11/24/19 Ferrous Sulfate 325 mg PO DAILY 11/24/19 Furosemide [Lasix] 40 mg PO DAILY 11/24/19 Hydralazine HCl 10 mg PO TID 11/24/19 Irbesartan [Avapro] 300 mg PO DAILY 11/24/19 Isosorbide Mononitrate [Isosorbide 30 mg PO DAILY 11/24/19 Mononitrate ER] Family Medical History Family History: Unremarkable Review of Systems - Review of Systems Constitutional: reports: No Symptoms Eyes: reports: No Symptoms HENT: reports: No Symptoms Neck: reports: No Symptoms Cardiovascular: reports: No Symptoms Respiratory: reports: No Symptoms Gastrointestinal: reports: No Symptoms Genitourinary: reports: No Symptoms Musculoskeletal: reports: No Symptoms Integumentary: reports: No Symptoms Neurological: reports: No Symptoms Endocrine: reports: No Symptoms Hematology/Lymphatic: reports: No Symptoms Psychiatric: reports: No Symptoms Vital Signs: Vital Signs Period Temp Pulse Resp BP Sys/Marin Pulse Ox Last 24 Hr 97.9 F-98.8 F 65-74 17-20 112-150/59-92 95-100 Constitutional: Yes: Well Nourished, No Distress, Calm Eyes: Yes: Conjunctiva Clear, EOM Intact HENT: Yes: Normocephalic, Epistaxis Neck: Yes: Supple, Trachea Midline Respiratory: Yes: Regular, CTA Bilaterally Gastrointestinal: Yes: Normal Bowel Sounds, Soft Cardiovascular: Yes: Regular Rate and Rhythm JVD: No Carotid Bruit: No PMI: Non-Displaced Heart Sounds: Yes: S1, S2 Musculoskeletal: No: Back Pain Extremities: No: Cold Edema: No Integumentary: No: Jaundice Neurological: Yes: Alert, Oriented Psychiatric: No: Agitated - Other Data Labs, Other Data: Laboratory Last Values WBC 5.1 K/mm3 (4.0-10.0) 12/14/19 11:30 RBC 2.82 M/mm3 (3.60-5.2) L 12/14/19 11:30 Hgb 7.8 GM/dL (10.7-15.3) L 12/14/19 11:30 Hct 23.7 % (32.4-45.2) L 12/14/19 11:30 MCV 84.0 fl (80-96) 12/14/19 11:30 MCH 27.6 pg (25.7-33.7) 12/14/19 11:30 MCHC 32.9 g/dl (32.0-36.0) 12/14/19 11:30 RDW 18.9 % (11.6-15.6) H 12/14/19 11:30 Plt Count 209 K/MM3 (134-434) 12/14/19 11:30 MPV 9.3 fl (7.5-11.1) 12/14/19 11:30 Absolute Neuts (auto) 3.8 K/mm3 (1.5-8.0) 12/14/19 11:30 Neutrophils % 74.2 % (42.8-82.8) 12/14/19 11:30 Lymphocytes % 12.0 % (8-40) 12/14/19 11:30 Monocytes % 9.6 % (3.8-10.2) 12/14/19 11:30 Eosinophils % 3.5 % (0-4.5) 12/14/19 11:30 Basophils % 0.7 % (0-2.0) 12/14/19 11:30 Nucleated RBC % 0 % (0-0) 12/14/19 11:30 PT with INR 12.00 SEC (9.7-13.0) 12/14/19 11:30 INR 0.99 (0.83-1.09) 12/14/19 11:30 PTT (Actin FS) 27.7 SECONDS (25.2-36.5) 12/13/19 Unknown Sodium 136 mmol/L (136-145) 12/14/19 11:30 Potassium 3.6 mmol/L (3.5-5.1) 12/14/19 11:30 Chloride 97 mmol/L (98-107) L 12/14/19 11:30 Carbon Dioxide 30 mmol/L (21-32) 12/14/19 11:30 Anion Gap 9 MMOL/L (8-16) 12/14/19 11:30 BUN 77.1 mg/dL (7-18) H 12/14/19 11:30 Creatinine 5.0 mg/dL (0.55-1.3) H 12/14/19 11:30 Est GFR (CKD-EPI)AfAm 9.44 12/14/19 11:30 Est GFR (CKD-EPI)NonAf 8.15 12/14/19 11:30 Random Glucose 132 mg/dL (74-106) H 12/14/19 11:30 Calcium 8.9 mg/dL (8.5-10.1) 12/14/19 11:30 Magnesium 3.0 mg/dL (1.8-2.4) H 12/14/19 11:30 Total Bilirubin 0.3 mg/dL (0.2-1) 12/14/19 11:30 AST 32 U/L (15-37) 12/14/19 11:30 ALT 25 U/L (13-61) 12/14/19 11:30 Alkaline Phosphatase 92 U/L (45-117) 12/14/19 11:30 Creatine Kinase 301 U/L (26-192) H 12/13/19 Unknown Creatine Kinase Index 0.8 % (0.0-5.0) 12/13/19 Unknown CK-MB (CK-2) 2.6 ng/mL (0.5-3.6) 12/13/19 Unknown Troponin I 0.05 ng/ml (0.00-0.05) 12/14/19 11:30 B-Natriuretic Peptide 91994.9 pg/ml (5-125) H 12/13/19 Unknown Total Protein 6.4 g/dl (6.4-8.2) 12/14/19 11:30 Albumin 2.3 g/dl (3.4-5.0) L 12/14/19 11:30 TSH 3.73 uIU/ml (0.358-3.74) 12/13/19 Unknown Urine Color Yellow 12/14/19 09:00 Urine Appearance Clear 12/14/19 09:00 Urine pH 6.0 (5.0-8.0) 12/14/19 09:00 Ur Specific [place] 1.009 (1.010-1.035) L 12/14/19 09:00 Urine Protein 1+ (NEGATIVE) H 12/14/19 09:00 Urine Glucose (UA) Negative (NEGATIVE) 12/14/19 09:00 Urine Ketones Negative (NEGATIVE) 12/14/19 09:00 Urine Blood Trace (NEGATIVE) 12/14/19 09:00 Urine Nitrite Negative (NEGATIVE) 12/14/19 09:00 Urine Bilirubin Negative (NEGATIVE) 12/14/19 09:00 Urine Urobilinogen 0.2 mg/dL (0.2-1.0) 12/14/19 09:00 Ur Leukocyte Esterase Negative (NEGATIVE) 12/14/19 09:00 Urine WBC (Auto) 10 /uL (0-25.8) 12/14/19 09:00 Urine RBC (Auto) 25 /uL (0-23.9) 12/14/19 09:00 Urine Casts (Auto) 0 /uL (0-3.1) 12/14/19 09:00 U Epithel Cells (Auto) 8 /uL (0-25.1) 12/14/19 09:00 Urine Bacteria (Auto) 83 /uL (0-1359) 12/14/19 09:00 Assessment/Plan US doppler renal artery bilateral (12/08): Aorta: There is an aneurysm of the suprarenal aorta measuring 3.37 cm. The infrarenal aorta is ectatic measuring 2.48 cm (sagittal). There is diffuse atherosclerotic plaque throughout the abdominal aorta. The abdominal aorta is tortuous. Celiac Artery: The celiac artery is not visualized. Superior Mesenteric Artery: The superior mesenteric artery is patent. Right: Renal Artery: The renal artery ostium is not visualized. B-mode and spectral analysis are consistent with a 0-59% stenosis. Patent without evidence for significant renal artery stenosis. Accessory Renal Artery: The renal accessory artery is not visualized. Kidney: There is a cyst in the upper pole parenchyma measuring 1.4 cm x 1.21 cm. Left: Renal Artery: B-mode and spectral analysis are consistent with a 60-99% stenosis of the renal artery ostium. Accessory Renal Artery #1: B-mode and spectral analysis are consistent with a 0-59% stenosis. Patent without evidence for significant renal artery stenosis. Kidney: There is a cyst in the mid renal parenchyma measuring 1.7 cm x 1.52 cm. These findings are consistent with CTA performed on 10/29/2019. TTE (12/05): overall mild to moderately decreased left ventricular systolic function (diffuse); ejection fraction (2D) = 43% severe left ventricular dilatation mild to moderate valvular mitral regurgitation normal right ventricular size normal right ventricular function no evidence for valvular aortic stenosis mild pulmonary hypertension small pericardial effusion severe left atrial dilatation grade II diastolic dysfunction with elevated left atrial pressure Definity ultrasound enhancing agent used to enhance endocardial border definition EKG: sinus, IRBBB, prolonged QTc 507 ms CXR: no acute process tele: sinus, NSVT 69F h/o HTN, CKD, TAA s/p ascending aorta stent graft Dr. Cervantes at [facility] (11/09/2019) p/w weakness weakness, nausea, dizziness - appears euvolemic - trop indeterminate range, flat trend, EKG stable - unlikely ACS - further workup per primary Pericardial effusion - small on echo with no signs of tamponade 12/05 - repeat echo ordered PAF: brief episode on tele prior admission -[id number] score warrants full AC but this has been limited by severe recurrent epistaxis -ENT has evaluated, no visible vessel to be cauterized -Patient has bled on Eliquis, heparin drip with a very well controlled PTT range of 50-65 and on aspirin 81 mg daily -At this point, the risks of recurrent bleeding outweigh the benefits -Her bleed risk is likely elevated due to CKD and resultant platelet dysfx -for now no ac or asa -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 should be deferred to outpatient care team with consideration for alternative nursing home solutions, such as WATCHMAN device although may not be a candidate given her comorbidities and need for course of DAPT -outpatient follow up, with extended outpatient monitoring to assess the burden of AF epistaxis - improved off anticoagulation, aspirin - cont holding chronic systolic HF: - EF 43% per records from [facility], with recent MPI negative 10/2019 - diuresed at last admission on lasix 120 mg IV BID and was discharged on lasix 80 mg PO BID - discharge Cr on 12/11 was 5.4 - cont hydralazine, imdur, coreg - not on ARB due to CKD - appears euvolemic, cont PO lasix Pulmonary embolism: - diagnosed in setting of COVID infection 10/2019 - was on eliquis, heparin gtt discontinued for epistaxis - s/p IVC filter - management per primary history of TAAA: - s/p TEVRA from L SCA to SMA, embolization of celiac artery and repair of sarah common femoral artery 11/07/2019, Dr. 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
[2019-12-14 12:37] LABS: BILIRUBIN,TOTAL 0.3 mg/dL (0.2-1); TOT PROT 6.4 g/dl (6.4-8.2)
[2019-12-14] MEDS: hydrALAZINE HCL 10 MG TABLET PO SCH ×2 (13:48→21:41)
--- NOTE | 2019-12-14 16:40 | CONSULT ---
Consult Consult Specialty:: Nephrology Reason for Consultation:: CARMENCITA - History of Present Illness Chief Complaint: weakness History of Present Illness: Pt is a 69 year old female with pmhx of chf, ckd, aortic stent, covid, htm, pericardial effusion who was transferred from to [facility]. She was given lasix there then discharged. She came back with weakness and generalized malaise. 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 she denies dysuria or hematuria. - History Source History Provided By: Patient - Past Medical History Cardio/Vascular: Yes: Aneurysm, HTN, Other Renal/: Yes: Renal Inusuff ...: No ENT: Yes: Other (history of epistaxis ) - Past Surgical History Past Surgical History: Yes: AAA Repair - Smoking History Smoking history: Never smoked Have you smoked in the past 12 months: No - Social History Usual Living Arrangement: With Child (daughter) Home Medications - Allergies Allergies/Adverse Reactions: Allergies Allergy/AdvReac Type Severity Reaction Status Date / Time No Known Allergies Allergy Verified 12/13/19 20:22 - Home Medications Home Medications: Ambulatory Orders Apixaban [Eliquis] 5 mg PO BID 11/24/19 Aspirin [Aspirin EC] 81 mg PO DAILY 11/24/19 Carvedilol [Coreg -] 25 mg PO BID 11/24/19 Famotidine 20 mg PO DAILY 11/24/19 Ferrous Sulfate 325 mg PO DAILY 11/24/19 Furosemide [Lasix] 40 mg PO DAILY 11/24/19 Hydralazine HCl 10 mg PO TID 11/24/19 Irbesartan [Avapro] 300 mg PO DAILY 11/24/19 Isosorbide Mononitrate [Isosorbide Mononitrate ER] 30 mg PO DAILY 11/24/19 Family Medical History Family History: Denies Review of Systems - Review of Systems Constitutional: reports: Loss of Appetite, Malaise, Weakness Eyes: reports: No Symptoms HENT: reports: No Symptoms Neck: reports: No Symptoms Cardiovascular: reports: No Symptoms Gastrointestinal: reports: No Symptoms Genitourinary: reports: No Symptoms Musculoskeletal: reports: No Symptoms Integumentary: reports: No Symptoms Neurological: reports: No Symptoms Endocrine: reports: No Symptoms Hematology/Lymphatic: reports: No Symptoms Psychiatric: reports: No Symptoms Physical Exam Vital Signs: Vital Signs Temperature 98 F 12/14/19 14:05 Pulse Rate 77 12/14/19 14:05 Respiratory Rate 18 12/14/19 14:05 Blood Pressure 111/74 12/14/19 14:05 O2 Sat by Pulse Oximetry (%) 95 12/14/19 09:00 Constitutional: Yes: Calm Eyes: Yes: Conjunctiva Clear HENT: Yes: Atraumatic Neck: Yes: Supple Cardiovascular: Yes: S1, S2 Respiratory: Yes: On Nasal O2 Gastrointestinal: Yes: Soft Renal/: Yes: WNL Musculoskeletal: Yes: WNL Edema: No Neurological: Yes: Oriented Psychiatric: Yes: Oriented Labs: CBC, BMP 12/14/19 11:30 12/14/19 11:30 Imaging - Results Chest X-ray: Report Reviewed Problem List - Problems (1) CKD (chronic kidney disease) Code(s): N18.9 - CHRONIC KIDNEY DISEASE, UNSPECIFIED (2) Anemia Code(s): D64.9 - ANEMIA, UNSPECIFIED Qualifiers: Anemia type: unspecified type Qualified Code(s): D64.9 - Anemia, unspecified (3) CHF (congestive heart failure) Code(s): I50.9 - HEART FAILURE, UNSPECIFIED Qualifiers: Heart failure type: unspecified Heart failure chronicity: chronic Qualified Code(s): I50.9 - Heart failure, unspecified Assessment/Plan Current Medications Generic Name Dose Route Start Last Admin Trade Name Freq PRN Reason Stop Dose Admin Carvedilol 25 mg 12/14/19 10:00 12/14/19 09:28 Coreg - PO 25 mg BID TAN Administration Furosemide 80 mg 12/14/19 14:00 Lasix - PO BID@0600,1400 TAN Heparin Sodium (Porcine) 5,000 unit 12/14/19 08:00 12/14/19 13:48 Heparin - SQ 5,000 unit TID TAN Administration Hydralazine HCl 10 mg 12/14/19 14:00 12/14/19 13:48 Apresoline - PO 10 mg TID TAN Administration Isosorbide Mononitrate 30 mg 12/14/19 10:00 12/14/19 09:28 Imdur - PO 30 mg DAILY TAN Administration Impression 1. CKD 2. CARMENCITA 3. chf 4. hx PE 5. htn 6. hx covid 7. epistaxis 8. pericardial effusion Plan - renal function is worse - pt appears euvolemic, resume home po lasix - discussed with cardio - repeat labs in am - check renal ultrasound - no indication for HD at this point - will follow
[2019-12-14] MEDS: FUROSEMIDE 20 MG TABLET (FP) PO SCH (17:36)
[2019-12-15] MEDS: FUROSEMIDE 20 MG TABLET (FP) PO SCH ×2 (06:42→13:13)
[2019-12-15] MEDS: hydrALAZINE HCL 10 MG TABLET PO SCH ×3 (06:42→21:30)
[2019-12-15] MEDS: HEPARIN NA (PORCINE) 5,000 UNITS/ML 1ML VIAL SQ SCH ×3 (06:43→21:30)
[2019-12-15 07:25] LABS: INR 0.98 (0.83-1.09); PROTHROMBIN TIME (PATIENT) 11.9 SEC (9.7-13.0)
[2019-12-15 07:30] LABS: BASO % 1.3 % (0-2.0); HEMOGLOBIN 7.8 GM/dL (10.7-15.3); LYMPH % 21.3 % (8-40); MCH 26.8 pg (25.7-33.7); MCHC 32.5 g/dl (32.0-36.0); MEAN CELL VOLUME 82.5 fl (80-96); MEAN PLT VOLUME 9.1 fl (7.5-11.1); MONO % 11.6 % (3.8-10.2); NEUT % 61.8 % (42.8-82.8); PLATELET COUNT 211 K/MM3 (134-434); RBC 2.91 M/mm3 (3.60-5.2); WHITE BLOOD COUNT 5.3 K/mm3 (4.0-10.0)
--- NOTE | 2019-12-15 07:40 | PN ---
Progress Note, Physician Chief Complaint: Seen and examined in bed. Lethargy improved. Renal us done with no acute pathology. Appears euvolemic. Cr remains elevated. No now 130-placed on fluid recistion. awaiting TTE today. Nephrology and Cardiology following History of Present Illness: 69F w/ PMHx of CHF, Ascending AA s/p Aortic Stent (11/08), COVID19 w/ resultant PE, CKD, HTN, HLD, and Chronic Anemia presents to the ED after endorsing several hours of generalized weakness, lightheadedness, dizziness, changes in vision, decreased appetite and nausea w/o vomiting. Admitted for generalized weakness likely multifactorial in origin. - Current Medication List Current Medications: Active Medications Carvedilol (Coreg -) 25 mg PO BID [facility] Last Admin: 12/14/19 21:41 Dose: 25 mg Documented by: Furosemide (Lasix -) 60 mg PO BID@0600,1400 [facility] Last Admin: 12/15/19 06:42 Dose: 60 mg Documented by: Heparin Sodium (Porcine) (Heparin -) 5,000 unit SQ TID [facility] Last Admin: 12/15/19 06:43 Dose: 5,000 unit Documented by: Hydralazine HCl (Apresoline -) 10 mg PO TID [facility] Last Admin: 12/15/19 06:42 Dose: 10 mg Documented by: Isosorbide Mononitrate (Imdur -) 30 mg PO DAILY [facility] Last Admin: 12/14/19 09:28 Dose: 30 mg Documented by: - Objective Vital Signs: Vital Signs Temperature 98.5 F 12/15/19 01:00 Pulse Rate 77 12/15/19 05:00 Respiratory Rate 20 12/15/19 05:00 Blood Pressure 140/80 12/15/19 05:00 O2 Sat by Pulse Oximetry (%) 93 L 12/15/19 01:00 Additional Findings/Remarks: Constitutional: Yes: Well Nourished, No Distress, Calm Eyes: Yes: WNL, Conjunctiva Clear HENT: Yes: WNL, Atraumatic, Normocephalic Neck: Yes: WNL, Supple, Trachea Midline Cardiovascular: Yes: WNL, Regular Rate and Rhythm Respiratory: Yes: WNL, Regular, CTA Bilaterally, Diminished (at bases) Gastrointestinal: Yes: WNL, Normal Bowel Sounds ...Rectal Exam: Yes: Deferred Breast(s): Yes: WNL Extremities: Yes: WNL Edema: Yes Edema: LLE: Trace, RLE: Trace Peripheral Pulses WNL: Yes Peripheral Pulses: Left Radial: 2+, Right Radial: 2+, Left Doralis Pedis: 2+, Right Dorsalis Pedis: 2+, Left Femoral: 2+, Right Femoral: 2+ Integumentary: Yes: WNL Neurological: Yes: WNL, Alert, Oriented ...Motor Strength: WNL Psychiatric: Yes: WNL Labs: CBC, BMP 12/15/19 06:30 INR, PTT INR 0.98 (0.83-1.09) 12/15/19 06:30 - ....Imaging Ultrasound: Report Reviewed (TTE:EF 45-50%, moderate MR, mild ,, small to modertae pericardial effusion-no tamponade) Other: Report Reviewed (Renal US:no hydro. diffuse urinary bladder wall thickening-? cyctitis) Problem List - Problems (1) Anemia Assessment/Plan: H/H 7.09/28 no signs of bleeding in the setting on CKD c/t monitor Code(s): D64.9 - ANEMIA, UNSPECIFIED Qualifiers: Anemia type: unspecified type Qualified Code(s): D64.9 - Anemia, unspecified (2) ESRD (end stage renal disease) Assessment/Plan: Cr 12/11 on [facility] discharge 5.4- 4.[address] carter lasix restarted last night at 60mg bid renal following renal Us noted Code(s): N18.6 - END STAGE RENAL DISEASE (3) Weakness Assessment/Plan: increasing weakness since discharge from [facility] contributimg factors -dehydration from over diuresis and poo po intake PT ordered Code(s): R53.1 - WEAKNESS (4) Afib Assessment/Plan: episode of AF last admission [id number] score 7 c/w coreg Code(s): I48.91 - UNSPECIFIED ATRIAL FIBRILLATION (5) Chronic systolic CHF (congestive heart failure) Assessment/Plan: chronic systolic HF as per [facility] records - EF 43% per records from [facility], with recent MPI negative 10/2019 - diuresed at [facility] with 120 mg IV BID and was discharged on lasix 80 mg PO BID - discharge Cr on 12/11 was 5.4 now 5.5 now appears euvolemic TTE now with EF 45-50%, mod MR, small to mod pericardial effusion c/w lasix c/w hydralazine, imdur, coreg not on ARB due to CKD strict I/Os daily weights Code(s): I50.22 - CHRONIC SYSTOLIC (CONGESTIVE) HEART FAILURE (6) Elevated troponin Assessment/Plan: unlikely ACS indeterminate range, flat trend, EKG no ischemic changes in setting of CKD Code(s): R77.8 - OTHER SPECIFIED ABNORMALITIES OF PLASMA PROTEINS (7) HTN (hypertension) Assessment/Plan: cont carvedilol, hydralazine, isosorbide mononitrate irbesartan held in setting of CKD Code(s): I10 - ESSENTIAL (PRIMARY) HYPERTENSION (8) Pericardial effusion (noninflammatory) Assessment/Plan: moderate effusion seen on echo-transfered to [facility] treated with high dose diuretics now appears euvolemic TTE now with small to mod effusion-no evidence of tamponade Code(s): I31.3 - PERICARDIAL EFFUSION (NONINFLAMMATORY) (9) Prophylactic measure Assessment/Plan: FEN Fluids: poor PO intake Electrolytes: monitor & replete as needed Nutrition: cardiac diet DVT moderate risk sq heparin-close watch for bleeding Dispo Maintain as inpatient full code discharge planning Code(s): Z29.9 - ENCOUNTER FOR PROPHYLACTIC MEASURES, UNSPECIFIED (10) Pulmonary embolism Assessment/Plan: recent dx of BL PE in imaging from [facility]-10/25 asymptomatic on presentation last admission-LE dopplers neg for dvt IVCF placed Code(s): I26.99 - OTHER PULMONARY EMBOLISM WITHOUT ACUTE COR PULMONALE (11) Status post endoscopic repair of thoracic aortic aneurysm (TAA) Assessment/Plan: s/p TEVRA from L SCA to SMA, embolization of celiac artery and repair of sarah common femoral artery 11/07/2019, Code(s): Z86.79 - PERSONAL HISTORY OF OTHER DISEASES OF THE CIRCULATORY SYSTEM; Z98.890 - OTHER SPECIFIED POSTPROCEDURAL STATES (12) Suspected COVID-19 virus infection Assessment/Plan: COVID Suspicion low On RA strict airborne/droplet precautions until resulted Code(s): Z20.828 - CONTACT W AND EXPOSURE TO OTH VIRAL COMMUNICABLE DISEASES (13) Hypokalemia Assessment/Plan: K 3.0 repleted and monitor Code(s): E87.6 - HYPOKALEMIA Visit type - Emergency Visit Emergency Visit: Yes ED Registration Date: 12/13/19 Care time: The patient presented to the Emergency Department on the above date and was hospitalized for further evaluation of their emergent condition. - New Patient This patient is new to me today: No - Critical Care Critical Care patient: No - Discharge Referral Referred to [facility] Med [facility] No - Medication Review Med list reviewed for High Risk Meds patients 65 and older: Yes
[2019-12-15 08:00] LABS: CALCIUM 8.8 mg/dL (8.5-10.1)
[2019-12-15 08:01] LABS: ALBUMIN 2.5 g/dl (3.4-5.0); BLOOD UREA NITROGEN 69.2 mg/dL (7-18); MAGNESIUM 2.8 mg/dL (1.8-2.4)
[2019-12-15 08:02] LABS: CREATININE 4.8 mg/dL (0.55-1.3)
[2019-12-15 08:03] LABS: PHOSPHOROUS 5.1 mg/dL (2.5-4.9)
[2019-12-15 08:04] LABS: BILIRUBIN,TOTAL 0.4 mg/dL (0.2-1); TOT PROT 6.6 g/dl (6.4-8.2)
[2019-12-15] MEDS: POTASSIUM CHLORIDE TABS 20 MEQ TABLET.ER (FP) PO SCH ×2 (10:57→13:13)
[2019-12-15] MEDS: CARVEDILOL 25 MG TABLET (FP) PO SCH ×2 (10:57→21:30)
[2019-12-15] MEDS: ISOSORBIDE MONONITRATE 30 MG TAB.SR.24H (FP) PO SCH (10:57)
[2019-12-15] MEDS ORDERED: ALPRAZolam 1 MG TABLET PO ONE (11:20)
--- NOTE | 2019-12-15 11:58 | PN ---
Progress Note (short form) - Note Progress Note: Chief Complaint: nausea, weakness History of Present Illness: 69F h/o HTN, CKD, TAA s/p ascending aorta stent graft Dr. Cervantes at [facility] [place] (11/08/2001) p/w weakness. recently admitted for epistaxis, CHF exacerbation. She had been on eliquis as an outpatient which was stopped due to epistaxis, also with significant epistaxis on heparin gtt, aspirin. IVC filter was placed. Was diuresed with IV lasix as well, echo here showed large pericardial effusion for which she was transferred to [facility] [place] for further workup. Follow up echo 12/05 at [facility] [place] showed small effusion with EF 43%. She was diuresed there with lasix 120 mg IV BID, lasix held for rising Cr there peaked at 6.06 on 12/10 and down trended with fluid, on dc Cr was 5.42 and discharged on 12/11 on lasix 80 mg PO BID. Went to ER on day of admission for worsening weakness, dizziness, change in vision and nausea for a few hours prior to admission. no chest pain, palps, dyspnea, edema. Current Medications Generic Name Dose Route Start Last Admin Trade Name Freq PRN Reason Stop Dose Admin Carvedilol 25 mg 12/14/19 10:00 12/15/19 10:57 Coreg - PO 25 mg BID TAN Administration Furosemide 60 mg 12/14/19 17:30 12/15/19 06:42 Lasix - PO 60 mg BID@0600,1400 TAN Administration Heparin Sodium (Porcine) 5,000 unit 12/14/19 08:00 12/15/19 06:43 Heparin - SQ 5,000 unit TID TAN Administration Hydralazine HCl 10 mg 12/14/19 14:00 12/15/19 06:42 Apresoline - PO 10 mg TID TAN Administration Isosorbide Mononitrate 30 mg 12/14/19 10:00 12/15/19 10:57 Imdur - PO 30 mg DAILY TAN Administration Potassium Chloride 40 meq 12/15/19 10:00 12/15/19 10:57 K-Dur - PO 12/15/19 14:01 40 meq Q4H TAN Administration Vital Signs Period Temp Pulse Resp BP Sys/Marin Pulse Ox Last 24 Hr 98 F-98.5 F 74-79 18-20 111-140/66-80 93-95 Constitutional: Yes: Well Nourished, No Distress, Calm Eyes: Yes: Conjunctiva Clear, EOM Intact HENT: Yes: Normocephalic, Epistaxis Neck: Yes: Supple, Trachea Midline Respiratory: Yes: Regular, CTA Bilaterally Gastrointestinal: Yes: Normal Bowel Sounds, Soft Cardiovascular: Yes: Regular Rate and Rhythm JVD: No Carotid Bruit: No PMI: Non-Displaced Heart Sounds: Yes: S1, S2 Musculoskeletal: No: Back Pain Extremities: No: Cold Edema: No Integumentary: No: Jaundice Neurological: Yes: Alert, Oriented Psychiatric: No: Agitated 12/15/19 06:30 12/15/19 06:30 Assessment/Plan US doppler renal artery bilateral (12/08): Aorta: There is an aneurysm of the suprarenal aorta measuring 3.37 cm. The infrarenal aorta is ectatic measuring 2.48 cm (sagittal). There is diffuse atherosclerotic plaque throughout the abdominal aorta. The abdominal aorta is tortuous. Celiac Artery: The celiac artery is not visualized. Superior Mesenteric Artery: The superior mesenteric artery is patent. Right: Renal Artery: The renal artery ostium is not visualized. B-mode and spectral analysis are consistent with a 0-59% stenosis. Patent without evidence for significant renal artery stenosis. Accessory Renal Artery: The renal accessory artery is not visualized. Kidney: There is a cyst in the upper pole parenchyma measuring 1.4 cm x 1.21 cm. Left: Renal Artery: B-mode and spectral analysis are consistent with a 60-99% stenosis of the renal artery ostium. Accessory Renal Artery #1: B-mode and spectral analysis are consistent with a 0-59% stenosis. Patent without evidence for significant renal artery stenosis. Kidney: There is a cyst in the mid renal parenchyma measuring 1.7 cm x 1.52 cm. These findings are consistent with CTA performed on 10/29/2019. TTE (12/05): overall mild to moderately decreased left ventricular systolic function (diffuse); ejection fraction (2D) = 43% severe left ventricular dilatation mild to moderate valvular mitral regurgitation normal right ventricular size normal right ventricular function no evidence for valvular aortic stenosis mild pulmonary hypertension small pericardial effusion severe left atrial dilatation grade II diastolic dysfunction with elevated left atrial pressure Definity ultrasound enhancing agent used to enhance endocardial border definition EKG: sinus, IRBBB, prolonged QTc 507 ms CXR: no acute process tele: sinus 69F h/o HTN, CKD, TAA s/p ascending aorta stent graft Dr. Cervantes at [facility] [place] (11/09/2019) p/w weakness. weakness, nausea, dizziness - appears euvolemic - trop indeterminate range, flat trend, EKG stable - unlikely ACS - further workup per primary Pericardial effusion - small on echo with no signs of tamponade 12/05 - repeat echo ordered PAF: brief episode on tele prior admission -[id number] score warrants full AC but this has been limited by severe recurrent epistaxis -ENT has evaluated, no visible vessel to be cauterized -Patient has bled on Eliquis, heparin drip with a very well controlled PTT range of 50-65 and on aspirin 81 mg daily -At this point, the risks of recurrent bleeding outweigh the benefits -Her bleed risk is likely elevated due to CKD and resultant platelet dysfx -for now no ac or asa -[facility] plan for AC should be deferred to outpatient care team with consideration for alternative skilled nursing solutions, such as WATCHMAN device although may not be a candidate given her comorbidities and need for course of DAPT -outpatient follow up, with extended outpatient monitoring to assess the burden of AF epistaxis - improved off anticoagulation, aspirin - cont holding chronic systolic HF: - EF 43% per records from [facility] [place], with recent MPI negative 10/2019 - diuresed at last admission on lasix 120 mg IV BID and was discharged on lasix 80 mg PO BID - discharge Cr on 12/11 was 5.4 - cont hydralazine, imdur, coreg - not on ARB due to CKD - appears euvolemic, cont PO lasix 60 bid (d/w renal) Pulmonary embolism: - diagnosed in setting of COVID infection 10/2019 - was on eliquis, heparin gtt discontinued for epistaxis - s/p IVC filter - management per primary history of TAAA: - s/p TEVRA from L SCA to SMA, embolization of celiac artery and repair of sarah common femoral artery 11/07/2019, Dr. 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
--- NOTE | 2019-12-15 12:22 | PN ---
Progress Note, Physician History of Present Illness: Pt seen and examined at bedside. She is awake and alert. She denies shortness of breath. - Current Medication List Current Medications: Active Medications Carvedilol (Coreg -) 25 mg PO BID [facility] Last Admin: 12/15/19 10:57 Dose: 25 mg Documented by: Furosemide (Lasix -) 60 mg PO BID@0600,1400 [facility] Last Admin: 12/15/19 06:42 Dose: 60 mg Documented by: Heparin Sodium (Porcine) (Heparin -) 5,000 unit SQ TID [facility] Last Admin: 12/15/19 06:43 Dose: 5,000 unit Documented by: Hydralazine HCl (Apresoline -) 10 mg PO TID [facility] Last Admin: 12/15/19 06:42 Dose: 10 mg Documented by: Isosorbide Mononitrate (Imdur -) 30 mg PO DAILY [facility] Last Admin: 12/15/19 10:57 Dose: 30 mg Documented by: Potassium Chloride (K-Dur -) 40 meq PO Q4H [facility] Stop: 12/15/19 14:01 Last Admin: 12/15/19 10:57 Dose: 40 meq Documented by: - Objective Vital Signs: Vital Signs Temperature 98.4 F 12/15/19 09:00 Pulse Rate 77 12/15/19 09:00 Respiratory Rate 20 12/15/19 09:00 Blood Pressure 121/66 12/15/19 09:00 O2 Sat by Pulse Oximetry (%) 93 L 12/15/19 09:00 Constitutional: Yes: Calm Eyes: Yes: Conjunctiva Clear HENT: Yes: Atraumatic Neck: Yes: Supple Cardiovascular: Yes: S1, S2 Respiratory: Yes: CTA Bilaterally Gastrointestinal: Yes: Normal Bowel Sounds, Soft Genitourinary: Yes: WNL Musculoskeletal: Yes: WNL Edema: No Neurological: Yes: Oriented Psychiatric: Yes: Oriented Labs: CBC, BMP 12/15/19 06:30 12/15/19 06:30 INR, PTT INR 0.98 (0.83-1.09) 12/15/19 06:30 Problem List - Problems (1) CKD (chronic kidney disease) Code(s): N18.9 - CHRONIC KIDNEY DISEASE, UNSPECIFIED (2) Anemia Code(s): D64.9 - ANEMIA, UNSPECIFIED Qualifiers: Anemia type: unspecified type Qualified Code(s): D64.9 - Anemia, unspecified (3) CHF (congestive heart failure) Code(s): I50.9 - HEART FAILURE, UNSPECIFIED Qualifiers: Heart failure type: unspecified Heart failure chronicity: chronic Qualified Code(s): I50.9 - Heart failure, unspecified Assessment/Plan Current Medications Generic Name Dose Route Start Last Admin Trade Name Freq PRN Reason Stop Dose Admin Carvedilol 25 mg 12/14/19 10:00 12/15/19 10:57 Coreg - PO 25 mg BID TAN Administration Furosemide 60 mg 12/14/19 17:30 12/15/19 06:42 Lasix - PO 60 mg BID@0600,1400 TAN Administration Heparin Sodium (Porcine) 5,000 unit 12/14/19 08:00 12/15/19 06:43 Heparin - SQ 5,000 unit TID TAN Administration Hydralazine HCl 10 mg 12/14/19 14:00 12/15/19 06:42 Apresoline - PO 10 mg TID TAN Administration Isosorbide Mononitrate 30 mg 12/14/19 10:00 12/15/19 10:57 Imdur - PO 30 mg DAILY TAN Administration Potassium Chloride 40 meq 12/15/19 10:00 12/15/19 10:57 K-Dur - PO 12/15/19 14:01 40 meq Q4H TAN Administration Impression 1. CKD 2. CARMENCITA 3. chf 4. hx PE 5. htn 6. hx covid 7. epistaxis 8. pericardial effusion 9. hypokalemia Plan - replace potassium - check mag - cont lasix, dose at 60 mg bid - discussed with cardiology - discussed with medical team - renal ultrasound reviewed
--- NOTE | 2019-12-15 13:44 | ECHO ---
Name: DULCE ALLRED Exam:Adult Echocardiogram Study Date: 12/15/2019 09:42 AM Age: 69 yrs Height: 60 in Weight: 138 lb BSA: 1.6 m2 MMode/2D Measurements & Calculations LVLd ap4: 7.9 cm SV(MOD-sp4): 51.0 ml EDV(MOD-sp4): 145.0 ml LVLs ap4: 7.8 cm ESV(MOD-sp4): 94.0 ml LAV (MOD-bp): 118.0 ml TAPSE: 1.9 cm Doppler Measurements & Calculations MV E max franklyn: 71.1 cm/sec AI P1/2t: 566.6 msec MV A max franklyn: 66.6 cm/sec MV E/A: 1.1 MV dec time: 0.16 sec AI max franklyn: 392.1 cm/sec MR max franklyn: 523.4 cm/sec AI max P.5 mmHg MR max P.9 mmHg AI dec slope: 202.7 cm/sec2 Tech Comments limited study- previous study 12/05/2019. Left Ventricle The left ventricle is normal in size. Left ventricular systolic function is mildly reduced. Ejection Fraction = 45-50%. There is basal posterolateral wall mild hypokinesis. There is proximal mid posteriolateral wall mild hypokinesis. Mitral Valve The mitral valve is grossly normal. There is moderate mitral regurgitation. Aortic Valve There is mild aortic sclerosis.;. Mild aortic regurgitation. Pericardium/Pleura Small to moderate pericardial effusion. There are no echocardiographic indications of cardiac tampona de. Interpretation Summary The left ventricle is normal in size. Left ventricular systolic function is mildly reduced. There is basal posterolateral wall mild hypokinesis. There is proximal mid posteriolateral wall mild hypokinesis. Ejection Fraction = 45-50%. There is moderate mitral regurgitation. There is mild aortic sclerosis. Mild aortic regurgitation. Small to moderate pericardial effusion There are no echocardiographic indications of cardiac tamponade. Martinez Little MD 12/15/2019 01:43 PM
[2019-12-15 14:16] LABS: CREATININE, URINE RANDOM 36.1 mg/dL (30-150)
[2019-12-16] MEDS: HEPARIN NA (PORCINE) 5,000 UNITS/ML 1ML VIAL SQ SCH ×2 (05:52→13:39)
[2019-12-16] MEDS: hydrALAZINE HCL 10 MG TABLET PO SCH ×2 (05:53→13:39)
[2019-12-16] MEDS: FUROSEMIDE 20 MG TABLET (FP) PO SCH ×2 (05:53→13:39)
[2019-12-16 07:07] LABS: INR 0.98 (0.83-1.09); PROTHROMBIN TIME (PATIENT) 12.1 SEC (9.7-13.0)
[2019-12-16 07:15] LABS: BASO % 1.3 % (0-2.0); EOS % 3.3 % (0-4.5); HEMATOCRIT 23.6 % (32.4-45.2); HEMOGLOBIN 7.8 GM/dL (10.7-15.3); LYMPH % 18.9 % (8-40); MCH 27.3 pg (25.7-33.7); MCHC 32.9 g/dl (32.0-36.0); MEAN PLT VOLUME 9.1 fl (7.5-11.1); MONO % 11.5 % (3.8-10.2); PLATELET COUNT 213 K/MM3 (134-434); RBC 2.84 M/mm3 (3.60-5.2); RDW 19.3 % (11.6-15.6); WHITE BLOOD COUNT 5.2 K/mm3 (4.0-10.0)
[2019-12-16 07:25] LABS: POTASSIUM 3.2 mmol/L (3.5-5.1)
[2019-12-16 07:31] LABS: CALCIUM 9.3 mg/dL (8.5-10.1)
[2019-12-16 07:32] LABS: ALBUMIN 2.4 g/dl (3.4-5.0); BLOOD UREA NITROGEN 70.8 mg/dL (7-18); MAGNESIUM 2.7 mg/dL (1.8-2.4)
[2019-12-16 07:35] LABS: BILIRUBIN,TOTAL 0.4 mg/dL (0.2-1); TOT PROT 6.3 g/dl (6.4-8.2)
--- NOTE | 2019-12-16 08:00 | PN ---
Progress Note, Physician History of Present Illness: 69F w/ PMHx of CHF, Ascending AA s/p Aortic Stent (11/08), COVID19 w/ resultant PE, CKD, HTN, HLD, and Chronic Anemia presents to the ED after endorsing several hours of generalized weakness, lightheadedness, dizziness, changes in vision, decreased appetite and nausea w/o vomiting. Admitted for generalized weakness likely multifactorial in origin. - Current Medication List Current Medications: Active Medications Carvedilol (Coreg -) 25 mg PO BID [facility] Last Admin: 12/15/19 21:30 Dose: 25 mg Documented by: Furosemide (Lasix -) 60 mg PO BID@0600,1400 [facility] Last Admin: 12/16/19 05:53 Dose: 60 mg Documented by: Heparin Sodium (Porcine) (Heparin -) 5,000 unit SQ TID [facility] Last Admin: 12/16/19 05:52 Dose: 5,000 unit Documented by: Hydralazine HCl (Apresoline -) 10 mg PO TID [facility] Last Admin: 12/16/19 05:53 Dose: 10 mg Documented by: Isosorbide Mononitrate (Imdur -) 30 mg PO DAILY [facility] Last Admin: 12/15/19 10:57 Dose: 30 mg Documented by: Potassium Chloride (K-Dur -) 40 meq PO Q4H [facility] Stop: 12/16/19 11:46 - Objective Vital Signs: Vital Signs Temperature 98.2 F 12/16/19 05:50 Pulse Rate 71 12/16/19 05:50 Respiratory Rate 18 12/16/19 05:50 Blood Pressure 130/82 12/16/19 05:50 O2 Sat by Pulse Oximetry (%) 95 12/16/19 05:50 Labs: CBC, BMP 12/16/19 06:15 INR, PTT INR 0.98 (0.83-1.09) 12/16/19 06:15 Problem List - Problems (1) Anemia Code(s): D64.9 - ANEMIA, UNSPECIFIED Qualifiers: Anemia type: unspecified type Qualified Code(s): D64.9 - Anemia, unspecified (2) ESRD (end stage renal disease) Code(s): N18.6 - END STAGE RENAL DISEASE (3) Weakness Code(s): R53.1 - WEAKNESS (4) Afib Code(s): I48.91 - UNSPECIFIED ATRIAL FIBRILLATION (5) Chronic systolic CHF (congestive heart failure) Code(s): I50.22 - CHRONIC SYSTOLIC (CONGESTIVE) HEART FAILURE (6) Elevated troponin Code(s): R77.8 - OTHER SPECIFIED ABNORMALITIES OF PLASMA PROTEINS (7) HTN (hypertension) Code(s): I10 - ESSENTIAL (PRIMARY) HYPERTENSION (8) Pericardial effusion (noninflammatory) Code(s): I31.3 - PERICARDIAL EFFUSION (NONINFLAMMATORY) (9) Prophylactic measure Code(s): Z29.9 - ENCOUNTER FOR PROPHYLACTIC MEASURES, UNSPECIFIED (10) Pulmonary embolism Code(s): I26.99 - OTHER PULMONARY EMBOLISM WITHOUT ACUTE COR PULMONALE (11) Status post endoscopic repair of thoracic aortic aneurysm (TAA) Code(s): Z86.79 - PERSONAL HISTORY OF OTHER DISEASES OF THE CIRCULATORY SYSTEM; Z98.890 - OTHER SPECIFIED POSTPROCEDURAL STATES (12) Suspected COVID-19 virus infection Code(s): Z20.828 - CONTACT W AND EXPOSURE TO OTH VIRAL COMMUNICABLE DISEASES (13) Hypokalemia Code(s): E87.6 - HYPOKALEMIA
[2019-12-16 08:06] LABS: CREATININE 4.5 mg/dL (0.55-1.3)
[2019-12-16] MEDS: POTASSIUM CHLORIDE TABS 20 MEQ TABLET.ER (FP) PO SCH ×2 (08:55→12:14)
[2019-12-16] MEDS: ISOSORBIDE MONONITRATE 30 MG TAB.SR.24H (FP) PO SCH (09:08)
[2019-12-16] MEDS: CARVEDILOL 25 MG TABLET (FP) PO SCH (09:08)
--- NOTE | 2019-12-16 11:44 | DS ---
Physical Exam: SUBJECTIVE: Patient seen and examined. Cr back to baseline. Medically stable for discharge to home with f/u with Dr Sahu in office. OBJECTIVE: Vital Signs Period Temp Pulse Resp BP Sys/Marin Pulse Ox Last 24 Hr 98 F-98.8 F 71-82 18-20 124-153/70-85 92-95 PHYSICAL EXAM Constitutional: Yes: Well Nourished, No Distress, Calm Eyes: Yes: WNL, Conjunctiva Clear HENT: Yes: WNL, Atraumatic, Normocephalic Neck: Yes: WNL, Supple, Trachea Midline Cardiovascular: Yes: WNL, Regular Rate and Rhythm Respiratory: Yes: WNL, Regular, CTA Bilaterally, Diminished (at bases) Gastrointestinal: Yes: WNL, Normal Bowel Sounds ...Rectal Exam: Yes: Deferred Breast(s): Yes: WNL Extremities: Yes: WNL Edema: Yes Edema: none Peripheral Pulses WNL: Yes Peripheral Pulses: Left Radial: 2+, Right Radial: 2+, Left Doralis Pedis: 2+, Right Dorsalis Pedis: 2+, Left Femoral: 2+, Right Femoral: 2+ Integumentary: Yes: WNL Neurological: Yes: WNL, Alert, Oriented ...Motor Strength: WNL Psychiatric: Yes: WNL LABS Laboratory Results - last 24 hr 12/13/19 12/15/19 12/15/19 22:17 06:30 11:00 WBC RBC Hgb Hct MCV MCH MCHC RDW Plt Count MPV Absolute Neuts (auto) Neutrophils % Lymphocytes % Monocytes % Eosinophils % Basophils % Nucleated RBC % PT with INR INR Sodium 134 L Potassium 3.0 L Chloride 95 L Carbon Dioxide 28 Anion Gap 11 BUN 69.2 H Creatinine 4.8 H Est GFR (CKD-EPI)AfAm 9.92 Est GFR (CKD-EPI)NonAf 8.56 Random Glucose 95 Calcium 8.8 Phosphorus 5.1 H Magnesium 2.8 H Total Bilirubin 0.4 AST 37 ALT 26 Alkaline Phosphatase 95 Troponin I 0.06 H Total Protein 6.6 Albumin 2.5 L Urine Osmolality 272 L Ur Random Creatinine 36.1 Ur Random Sodium 75 Ur Random Urea Nitrogn 199 L COVID-19 ([facility]) Not detected 12/15/19 12/16/19 12/16/19 13:12 06:15 06:15 WBC 5.2 RBC 2.84 L Hgb 7.8 L Hct 23.6 L MCV 83.0 MCH 27.3 MCHC 32.9 RDW 19.3 H Plt Count 213 MPV 9.1 Absolute Neuts (auto) 3.4 Neutrophils % 65.0 Lymphocytes % 18.9 Monocytes % 11.5 H Eosinophils % 3.3 Basophils % 1.3 Nucleated RBC % 0 PT with INR 12.10 INR 0.98 Sodium Potassium Chloride Carbon Dioxide Anion Gap BUN Creatinine Est GFR (CKD-EPI)AfAm Est GFR (CKD-EPI)NonAf Random Glucose Calcium Phosphorus Magnesium Total Bilirubin AST ALT Alkaline Phosphatase Troponin I 0.05 Total Protein Albumin Urine Osmolality Ur Random Creatinine Ur Random Sodium Ur Random Urea Nitrogn COVID-19 ([facility]) 12/16/19 06:15 WBC RBC Hgb Hct MCV MCH MCHC RDW Plt Count MPV Absolute Neuts (auto) Neutrophils % Lymphocytes % Monocytes % Eosinophils % Basophils % Nucleated RBC % PT with INR INR Sodium 136 Potassium 3.2 L Chloride 99 Carbon Dioxide 27 Anion Gap 11 BUN 70.8 H Creatinine 4.5 H Est GFR (CKD-EPI)AfAm 10.73 Est GFR (CKD-EPI)NonAf 9.26 Random Glucose 93 Calcium 9.3 Phosphorus Magnesium 2.7 H Total Bilirubin 0.4 AST 34 ALT 24 Alkaline Phosphatase 89 Troponin I Total Protein 6.3 L Albumin 2.4 L Urine Osmolality Ur Random Creatinine Ur Random Sodium Ur Random Urea Nitrogn COVID-19 ([facility]) HOSPITAL COURSE: Date of Admission:12/13/19 Date of Discharge: 12/16/19 - ....Imaging Ultrasound: Report Reviewed (TTE:EF 45-50%, moderate MR, mild ,, small to modertae pericardial effusion-no tamponade) Other: Report Reviewed (Renal US:no hydro. diffuse urinary bladder wall thickening-? cyctitis) Problem List - Problems (1) Anemia Assessment/Plan: H/H 7.8 no signs of bleeding in the setting on CKD resume FESO4 at home Code(s): D64.9 - ANEMIA, UNSPECIFIED Qualifiers: Anemia type: unspecified type Qualified Code(s): D64.9 - Anemia, unspecified (2) ESRD (end stage renal disease) Assessment/Plan: [place] [facility] [place] 5.4 back to baseline now follows with dr carter but would like to follow with Dr Sahu as an outpatient. c/w lasix at 60mg bid renal Us noted Code(s): N18.6 - END STAGE RENAL DISEASE (3) Weakness Assessment/Plan: improved contributimg factors -dehydration from over diuresis and poor po intake Code(s): R53.1 - WEAKNESS (4) Afib Assessment/Plan: episode of AF last admission [id number] score 7 c/w coreg Code(s): I48.91 - UNSPECIFIED ATRIAL FIBRILLATION (5) Chronic systolic CHF (congestive heart failure) Assessment/Plan: chronic systolic HF as [place] [facility] [place] - EF 43% [place] [facility] [place], with recent MPI negative 10/2019 - [place] [facility] [place] with 120 mg IV BID and was discharged on lasix 80 mg PO BID - discharge Cr on 12/11 was 5.4 now 5.5 now appears euvolemic TTE now with EF 45-50%, mod MR, small to mod pericardial effusion c/w lasix c/w hydralazine, imdur, coreg not on ARB due to CKD c/w daily weights at home Code(s): I50.22 - CHRONIC SYSTOLIC (CONGESTIVE) HEART FAILURE (6) Elevated troponin Assessment/Plan: unlikely ACS indeterminate range, flat trend, EKG no ischemic changes in setting of CKD Code(s): R77.8 - OTHER SPECIFIED ABNORMALITIES OF PLASMA PROTEINS (7) HTN (hypertension) Assessment/Plan: cont carvedilol, hydralazine, isosorbide mononitrate irbesartan held in setting of CKD Code(s): I10 - ESSENTIAL (PRIMARY) HYPERTENSION (8) Pericardial effusion (noninflammatory) Assessment/Plan: moderate effusion seen on echo-trans[place] [facility] [place] with high dose diuretics now appears euvolemic TTE now with small to mod effusion-no evidence of tamponade Code(s): I31.3 - PERICARDIAL EFFUSION (NONINFLAMMATORY) (9) Prophylactic measure Assessment/Plan: FEN Fluids: adeqaute PO intake Electrolytes: monitored & repletes Nutrition: cardiac diet DVT no chemical AC at home given high risk of bleeding Dispo discharge to home with f/u Code(s): Z29.9 - ENCOUNTER FOR PROPHYLACTIC MEASURES, UNSPECIFIED (10) Pulmonary embolism Assessment/Plan: recent dx of [place] PE [place] [facility] [place] asymptomatic on presentation last admission-LE dopplers neg for dvt IVCF placed Code(s): I26.99 - OTHER PULMONARY EMBOLISM WITHOUT ACUTE COR PULMONALE (11) Status post endoscopic repair of thoracic aortic aneurysm (TAA) Assessment/Plan: s/p TEVRA from L SCA to SMA, embolization of celiac artery and repair of sarah common femoral artery 11/07/2019, Code(s): Z86.79 - PERSONAL HISTORY OF OTHER DISEASES OF THE CIRCULATORY SYSTEM; Z98.890 - OTHER SPECIFIED POSTPROCEDURAL STATES (12) COVID-19 virus infection not detected Assessment/Plan: negative PCR Code(s): Z20.828 - CONTACT W AND EXPOSURE TO OTH VIRAL COMMUNICABLE DISEASES (13) Hypokalemia Assessment/Plan: resolved Code(s): E87.6 - HYPOKALEMIA medically stable for dc to home with f/u with Dr Sahu in office next week Minutes to complete discharge: 45 Discharge Summary Problems reviewed: Yes Reason For Visit: CHRONIC KIDNEY DISEASE,ELEVATED TROONINLEVEL, Current Active Problems Anemia (Acute) CHF (congestive heart failure) (Acute) CKD (chronic kidney disease) (Acute) ESRD (end stage renal disease) (Acute) Hypokalemia (Acute) Hyponatremia (Acute) Pleural effusion (Acute) Weakness (Acute) Condition: Improved - Instructions Diet, Activity, Other Instructions: DISCHARGE YOUR VISIT You came to the hospital because were very tired and your creatinine was very high. Youe were seen by the kidney doctor and the marketing automation specialist. We decreased your lasix because you were getting too dehydrated. Continue to take lasix 60mg twice a day until you see the kidney doctor. Do not tae any blood thinners or aspirin when you get home. Continue all your other medications. MEDICATIONS Please continue to take your home medications as prescribed. There was changes: LASIX 60mg twice a day DIET Continue your home diet-low salt ADDITIONAL CARE Please make an appointment to see your kidney doctor, Dr Sahu 1 week from today. ADDITIONAL INFORMATION Please call 911 or come directly to the emergency department if you experience unusual headache, vision change, shortness of breath, chest pain, numbness, tingling, loss of alertness/awareness, loss of function, unusual bleeding or any alarming symptoms. Thank you for allowing me to care for you. Damian Camacho, [facility], [facility] [phone] Referrals: Goran Sahu MD [Staff Physician] - 1 Week Disposition: HOME - Home Medications Comprehensive Discharge Medication List: Ambulatory Orders Apixaban [Eliquis] 5 mg PO BID 11/24/19 Aspirin [Aspirin EC] 81 mg PO DAILY 11/24/19 Carvedilol [Coreg -] 25 mg PO BID 11/24/19 Famotidine 20 mg PO DAILY 11/24/19 Ferrous Sulfate 325 mg PO DAILY 11/24/19 Furosemide [Lasix] 40 mg PO DAILY 11/24/19 Hydralazine HCl 10 mg PO TID 11/24/19 Irbesartan [Avapro] 300 mg PO DAILY 11/24/19 Isosorbide Mononitrate [Isosorbide Mononitrate ER] 30 mg PO DAILY 11/24/19 Prescription Drug Monitoring Program (I-STOP) results: I-STOP not reviewed Problem List - Problems (1) Anemia Code(s): D64.9 - ANEMIA, UNSPECIFIED Qualifiers: Anemia type: unspecified type Qualified Code(s): D64.9 - Anemia, unspecified (2) ESRD (end stage renal disease) Code(s): N18.6 - END STAGE RENAL DISEASE (3) Weakness Code(s): R53.1 - WEAKNESS (4) Afib Code(s): I48.91 - UNSPECIFIED ATRIAL FIBRILLATION (5) Chronic systolic CHF (congestive heart failure) Code(s): I50.22 - CHRONIC SYSTOLIC (CONGESTIVE) HEART FAILURE (6) Elevated troponin Code(s): R77.8 - OTHER SPECIFIED ABNORMALITIES OF PLASMA PROTEINS (7) HTN (hypertension) Code(s): I10 - ESSENTIAL (PRIMARY) HYPERTENSION (8) Pericardial effusion (noninflammatory) Code(s): I31.3 - PERICARDIAL EFFUSION (NONINFLAMMATORY) (9) Prophylactic measure Code(s): Z29.9 - ENCOUNTER FOR PROPHYLACTIC MEASURES, UNSPECIFIED (10) Pulmonary embolism Code(s): I26.99 - OTHER PULMONARY EMBOLISM WITHOUT ACUTE COR PULMONALE (11) Status post endoscopic repair of thoracic aortic aneurysm (TAA) Code(s): Z86.79 - PERSONAL HISTORY OF OTHER DISEASES OF THE CIRCULATORY SYSTEM; Z98.890 - OTHER SPECIFIED POSTPROCEDURAL STATES (12) Suspected COVID-19 virus infection Code(s): Z20.828 - CONTACT W AND EXPOSURE TO OTH VIRAL COMMUNICABLE DISEASES (13) Hypokalemia Code(s): E87.6 - HYPOKALEMIA This patient is new to me today: No Emergency Visit: Yes ED Registration Date: 12/13/19 Care time: The patient presented to the Emergency Department on the above date and was hospitalized for further evaluation of their emergent condition. Critical Care patient: No - Discharge Referral Referred to [facility] Med P.C.: No
--- NOTE | 2019-12-16 12:51 | PN ---
Progress Note (short form) - Note Progress Note: Chief Complaint: nausea, weakness s: no chest pain, palps, dyspnea, edema. feels better, nausea and weakness resolved Current Medications Generic Name Dose Route Start Last Admin Trade Name Bob PRN Reason Stop Dose Admin Carvedilol 25 mg 12/14/19 10:00 12/16/19 09:08 Coreg - PO 25 mg BID TAN Administration Furosemide 60 mg 12/14/19 17:30 12/16/19 05:53 Lasix - PO 60 mg BID@0600,1400 TAN Administration Heparin Sodium (Porcine) 5,000 unit 12/14/19 08:00 12/16/19 05:52 Heparin - SQ 5,000 unit TID TAN Administration Hydralazine HCl 10 mg 12/14/19 14:00 12/16/19 05:53 Apresoline - PO 10 mg TID TAN Administration Isosorbide Mononitrate 30 mg 12/14/19 10:00 12/16/19 09:08 Imdur - PO 30 mg DAILY TAN Administration Vital Signs Period Temp Pulse Resp BP Sys/Marin Pulse Ox Last 24 Hr 98 F-98.8 F 71-82 18-20 124-153/70-85 92-95 Constitutional: Yes: Well Nourished, No Distress, Calm Eyes: Yes: Conjunctiva Clear, EOM Intact HENT: Yes: Normocephalic, Epistaxis Neck: Yes: Supple, Trachea Midline Respiratory: Yes: Regular, CTA Bilaterally Gastrointestinal: Yes: Normal Bowel Sounds, Soft Cardiovascular: Yes: Regular Rate and Rhythm JVD: No Carotid Bruit: No PMI: Non-Displaced Heart Sounds: Yes: S1, S2 Musculoskeletal: No: Back Pain Extremities: No: Cold Edema: No Integumentary: No: Jaundice Neurological: Yes: Alert, Oriented Psychiatric: No: Agitated Assessment/Plan US doppler renal artery bilateral (12/08): Aorta: There is an aneurysm of the suprarenal aorta measuring 3.37 cm. The infrarenal aorta is ectatic measuring 2.48 cm (sagittal). There is diffuse atherosclerotic plaque throughout the abdominal aorta. The abdominal aorta is tortuous. Celiac Artery: The celiac artery is not visualized. Superior Mesenteric Artery: The superior mesenteric artery is patent. Right: Renal Artery: The renal artery ostium is not visualized. B-mode and spectral analysis are consistent with a 0-59% stenosis. Patent without evidence for significant renal artery stenosis. Accessory Renal Artery: The renal accessory artery is not visualized. Kidney: There is a cyst in the upper pole parenchyma measuring 1.4 cm x 1.21 cm. Left: Renal Artery: B-mode and spectral analysis are consistent with a 60-99% stenosis of the renal artery ostium. Accessory Renal Artery #1: B-mode and spectral analysis are consistent with a 0-59% stenosis. Patent without evidence for significant renal artery stenosis. Kidney: There is a cyst in the mid renal parenchyma measuring 1.7 cm x 1.52 cm. These findings are consistent with CTA performed on 10/29/2019. TTE (12/05): overall mild to moderately decreased left ventricular systolic function (diffuse); ejection fraction (2D) = 43% severe left ventricular dilatation mild to moderate valvular mitral regurgitation normal right ventricular size normal right ventricular function no evidence for valvular aortic stenosis mild pulmonary hypertension small pericardial effusion severe left atrial dilatation grade II diastolic dysfunction with elevated left atrial pressure Definity ultrasound enhancing agent used to enhance endocardial border definition EKG: sinus, IRBBB, prolonged QTc 507 ms CXR: no acute process echo 12/2019 mildly reduced LV function, EF 45-50%, basal posterolateral wall mild hypokinesis, prox mid posterolateral wall mild hypokinesis, mod MR, mild AR, small to mod pericardial effusion, no echocardiographic signs of tamponade tele: sinus 70F h/o HTN, CKD, TAA s/p ascending aorta stent graft Dr. Cervantes at [facility] [place] (11/09/2019) p/w weakness. weakness, nausea, dizziness - appears euvolemic - trop indeterminate range, flat trend, EKG stable - unlikely ACS - further workup per primary Pericardial effusion - small on echo with no signs of tamponade 12/05 - stable on echo here, no signs of tamponade PAF: brief episode on tele prior admission -[id number] score warrants full AC but this has been limited by severe recurrent epistaxis -ENT has evaluated, no visible vessel to be cauterized -Patient has bled on Eliquis, heparin drip with a very well controlled PTT range of 50-65 and on aspirin 81 mg daily -At this point, the risks of recurrent bleeding outweigh the benefits -Her bleed risk is likely elevated due to CKD and resultant platelet dysfx -for now no ac or asa -shelter plan for AC should be deferred to outpatient care team with consideration for alternative terminal system operator solutions, such as WATCHMAN device although may not be a candidate given her comorbidities and need for course of DAPT -outpatient follow up, with extended outpatient monitoring to assess the burden of AF epistaxis - improved off anticoagulation, aspirin - cont holding chronic systolic HF: - EF 43% per records from [facility] [place], with recent MPI negative 10/2019 - diuresed at last admission on lasix 120 mg IV BID and was discharged on lasix 80 mg PO BID - discharge Cr on 12/11 was 5.4 - cont hydralazine, imdur, coreg - not on ARB due to CKD - appears euvolemic, cont PO lasix 60 bid (d/w renal) Pulmonary embolism: - diagnosed in setting of COVID infection 10/2019 - was on eliquis, heparin gtt discontinued for epistaxis - s/p IVC filter - management per primary history of TAAA: - s/p TEVRA from L SCA to SMA, embolization of celiac artery and repair of sarah common femoral artery 11/07/2019, Dr. Cervantes at [facility] [place] anemia -may be in setting of underlying CKD - monitor H/?H elevated troponin - indeterminate range, flat trend, EKG no ischemic changes in setting of CKD - unlikely ACS HTN - cont carvedilol, hydralazine, isosorbide mononitrate - irbesartan held in setting of CKD, restart if Cr remains stable CKD stage IV - has outpatient hand glass cutter - Cr 12/[address] [facility] [place] discharge 5.4, improving here
--- NOTE | 2019-12-16 12:53 | PN ---
Progress Note, Physician History of Present Illness: Pt seen and examined at bedside. She is awake and alert. She denies shortness of breath. - Current Medication List Current Medications: Active Medications Carvedilol (Coreg -) 25 mg PO BID [facility] Last Admin: 12/16/19 09:08 Dose: 25 mg Documented by: Furosemide (Lasix -) 60 mg PO BID@0600,1400 [facility] Last Admin: 12/16/19 05:53 Dose: 60 mg Documented by: Heparin Sodium (Porcine) (Heparin -) 5,000 unit SQ TID [facility] Last Admin: 12/16/19 05:52 Dose: 5,000 unit Documented by: Hydralazine HCl (Apresoline -) 10 mg PO TID [facility] Last Admin: 12/16/19 05:53 Dose: 10 mg Documented by: Isosorbide Mononitrate (Imdur -) 30 mg PO DAILY [facility] Last Admin: 12/16/19 09:08 Dose: 30 mg Documented by: - Objective Vital Signs: Vital Signs Temperature 98 F 12/16/19 09:00 Pulse Rate 75 12/16/19 09:00 Respiratory Rate 20 12/16/19 09:00 Blood Pressure 153/85 12/16/19 09:00 O2 Sat by Pulse Oximetry (%) 95 12/16/19 09:00 Constitutional: Yes: Calm Eyes: Yes: Conjunctiva Clear HENT: Yes: Atraumatic Neck: Yes: Supple Cardiovascular: Yes: S1, S2 Respiratory: Yes: CTA Bilaterally Gastrointestinal: Yes: Normal Bowel Sounds, Soft Musculoskeletal: Yes: WNL Edema: No Neurological: Yes: Oriented Psychiatric: Yes: Oriented Labs: CBC, BMP 12/16/19 06:15 12/16/19 06:15 INR, PTT INR 0.98 (0.83-1.09) 12/16/19 06:15 Problem List - Problems (1) CKD (chronic kidney disease) Code(s): N18.9 - CHRONIC KIDNEY DISEASE, UNSPECIFIED (2) Anemia Code(s): D64.9 - ANEMIA, UNSPECIFIED Qualifiers: Anemia type: unspecified type Qualified Code(s): D64.9 - Anemia, unspecified (3) CHF (congestive heart failure) Code(s): I50.9 - HEART FAILURE, UNSPECIFIED Qualifiers: Heart failure type: unspecified Heart failure chronicity: chronic Qualified Code(s): I50.9 - Heart failure, unspecified Assessment/Plan Current Medications Generic Name Dose Route Start Last Admin Trade Name Bob PRN Reason Stop Dose Admin Carvedilol 25 mg 12/14/19 10:00 12/16/19 09:08 Coreg - PO 25 mg BID TAN Administration Furosemide 60 mg 12/14/19 17:30 12/16/19 05:53 Lasix - PO 60 mg BID@0600,1400 TAN Administration Heparin Sodium (Porcine) 5,000 unit 12/14/19 08:00 12/16/19 05:52 Heparin - SQ 5,000 unit TID TAN Administration Hydralazine HCl 10 mg 12/14/19 14:00 12/16/19 05:53 Apresoline - PO 10 mg TID TAN Administration Isosorbide Mononitrate 30 mg 12/14/19 10:00 12/16/19 09:08 Imdur - PO 30 mg DAILY TAN Administration Impression 1. CKD 2. CARMENCITA 3. chf 4. hx PE 5. htn 6. hx covid 7. epistaxis 8. pericardial effusion 9. hypokalemia Plan - renal function improving - cont lasix at 60 bid - discussed with cardio - replace potassium - will need close outpt follow up
[2019-12-16 15:52] VITALS: BP 148/82; PULSE 79; TEMP 98.1
== END 2019-12-16 18:32 | disposition home or self-care (01) | DRG 469 ==
LOC: JER 20:14 → JERBED 22:14 → J4W 12-14 00:56
PROVIDERS: ADMIT Internal Medicine; ATTEND Nurse Practitioner Acute Care
DX: N17.9 Acute kidney failure, unspecified (principal); E86.0 Dehydration; N18.6 End stage renal disease; I13.2 Hypertensive heart and chronic kidney disease with heart failure and with stage 5 chronic kidney disease, or end stage renal disease; I31.3 Pericardial effusion (noninflammatory); I50.22 Chronic systolic (congestive) heart failure; I24.8 Other forms of acute ischemic heart disease; E87.6 Hypokalemia; Z86.79 Personal history of other diseases of the circulatory system; D64.9 Anemia, unspecified; D63.1 Anemia in chronic kidney disease; I48.0 Paroxysmal atrial fibrillation; E87.1 Hypo-osmolality and hyponatremia
CPT/HCPCS: 36415; 71045-TC-FY; 76775-TC; 76856-TC; 80053; 81003; 82550; 82553; 82565; 83735; 83880; 83935; 84100; 84300; 84443; 84484; 84540; 85025; 85610; 85730; 87086; 93005; 93010; 93306-TC; 99285-25; C9803; J0131; J1644; U0003

== ENCOUNTER 2019-12-18 06:42 | Inpatient (IN) | payer OTHER ==
[2019-12-18] MEDS ORDERED: ACETAMINOPHEN 500 MG TABLET (FP) PO ONE (07:54)
[2019-12-18 08:55] LABS: BASO % 0.7 % (0-2.0); EOS % 2.9 % (0-4.5); HEMATOCRIT 24.9 % (32.4-45.2); LYMPH % 15.1 % (8-40); MCH 27.1 pg (25.7-33.7); MCHC 32.3 g/dl (32.0-36.0); MEAN CELL VOLUME 83.8 fl (80-96); MEAN PLT VOLUME 9.2 fl (7.5-11.1); MONO % 11.6 % (3.8-10.2); NEUT % 69.7 % (42.8-82.8); PLATELET COUNT 217 K/MM3 (134-434); RBC 2.97 M/mm3 (3.60-5.2); RDW 19.4 % (11.6-15.6)
[2019-12-18] MEDS ORDERED: ACETAMINOPHEN 325 MG TABLET (FP) ONE (09:00)
[2019-12-18 09:01] LABS: INR 0.93 (0.83-1.09); PROTHROMBIN TIME (PATIENT) 11.3 SEC (9.7-13.0)
[2019-12-18 09:04] LABS: ACTIVATED PTT 23.8 SECONDS (25.2-36.5)
[2019-12-18 09:21] LABS: POTASSIUM 3.9 mmol/L (3.5-5.1)
[2019-12-18 09:23] LABS: ALBUMIN 2.6 g/dl (3.4-5.0)
[2019-12-18 09:27] LABS: CREATININE 4.8 mg/dL (0.55-1.3)
[2019-12-18 09:28] LABS: BILIRUBIN,TOTAL 0.3 mg/dL (0.2-1); TOT PROT 6.9 g/dl (6.4-8.2)
[2019-12-18] MEDS ORDERED: morphine CARPU-JECT 4 MG/1 ML DISP.SYRIN IVPUSH ONE (09:51)
[2019-12-18] MEDS ORDERED: morphine SULFATE 4 MG/ML VIAL ONE (10:06)
[2019-12-18] MEDS ORDERED: CARVEDILOL 25 MG TABLET (FP) PO ONE (18:57)
[2019-12-18] MEDS ORDERED: hydrOXYzine PAMOATE 25 MG CAPSULE (FP) PO ONE (18:57)
[2019-12-18] MEDS ORDERED: CARVEDILOL 12.5 MG TABLET (FP) ONE (20:17)
[2019-12-18] MEDS ORDERED: hydrOXYzine HCL 10 MG/5 ML LIQUID BULK BOTTLE PO ONE (21:00)
[2019-12-19 01:23] LABS: EPI CELLS 20 /uL (0-25.1); HYALINE CASTS 0 /uL (0-3.1); PH,URINE 7.5 (5.0-8.0); URINE APPEARANCE CLEAR; URINE BACTERIA 174 /uL (0-1359); URINE BILIRUBIN NEGATIVE (NEGATIVE); URINE COLOR YELLOW; URINE GLUCOSE (UA) NEGATIVE (NEGATIVE); URINE KETONE NEGATIVE (NEGATIVE); URINE LEUK ESTERASE TRACE (NEGATIVE); URINE NITRITE NEGATIVE (NEGATIVE); URINE PROTEIN 2+ (NEGATIVE); URINE RBC 10 /uL (0-23.9); URINE UROBILINOGEN 0.2 mg/dL (0.2-1.0); URINE WBC 23 /uL (0-25.8)
[2019-12-19] MEDS ORDERED: CARVEDILOL 25 MG TABLET (FP) PO ONE (07:33)
[2019-12-19] MEDS ORDERED: hydrOXYzine PAMOATE 25 MG CAPSULE (FP) PO ONE (07:34)
[2019-12-19] MEDS ORDERED: LOSARTAN POTASSIUM 50 MG TABLET PO ONE (07:38)
[2019-12-19] MEDS ORDERED: LOSARTAN POTASSIUM 50 MG TABLET ONE (08:11)
[2019-12-19] MEDS ORDERED: CARVEDILOL 12.5 MG TABLET (FP) ONE (08:11)
[2019-12-19] MEDS ORDERED: hydrALAZINE HCL 10 MG TABLET PO ONE (08:13)
[2019-12-19 08:29] LABS: CALCIUM 9.8 mg/dL (8.5-10.1)
[2019-12-19 08:30] LABS: BLOOD UREA NITROGEN 64.7 mg/dL (7-18)
[2019-12-19 08:33] LABS: CREATININE 4.7 mg/dL (0.55-1.3)
[2019-12-19] MEDS ORDERED: ISOSORBIDE MONONITRATE 30 MG TAB.SR.24H (FP) PO SCH (10:00)
[2019-12-19] MEDS ORDERED: ISOSORBIDE MONONITRATE 60 MG TAB.SR.24H (FP) PO ONE (10:12)
[2019-12-19] MEDS ORDERED: hydrALAZINE HCL 10 MG TABLET PO SCH (14:00)
[2019-12-19] MEDS: hydrALAZINE HCL 10 MG TABLET PO SCH ×2 (14:10→22:14)
[2019-12-19 17:36] VITALS: BMI 26.4
[2019-12-19 17:56] LABS: HEMATOCRIT 25.5 % (32.4-45.2); HEMOGLOBIN 8.2 GM/dL (10.7-15.3); MCH 26.7 pg (25.7-33.7); MCHC 32.1 g/dl (32.0-36.0); MEAN CELL VOLUME 83.3 fl (80-96); MEAN PLT VOLUME 8.4 fl (7.5-11.1); PLATELET COUNT 201 K/MM3 (134-434); RBC 3.06 M/mm3 (3.60-5.2); RDW 19.2 % (11.6-15.6); WHITE BLOOD COUNT 5.9 K/mm3 (4.0-10.0)
[2019-12-19] MEDS ORDERED: HEPARIN NA (PORCINE) 5,000 UNITS/ML 1ML VIAL SQ SCH (18:00)
[2019-12-19] MEDS: CARVEDILOL 25 MG TABLET (FP) PO SCH (22:14)
[2019-12-19] MEDS: HEPARIN NA (PORCINE) 5,000 UNITS/ML 1ML VIAL SQ SCH (22:15)
[2019-12-20] MEDS ORDERED: FUROSEMIDE 20 MG TABLET (FP) PO SCH (06:00)
[2019-12-20] MEDS: hydrALAZINE HCL 10 MG TABLET PO SCH ×2 (06:28→13:16)
[2019-12-20] MEDS: FUROSEMIDE 20 MG TABLET (FP) PO SCH ×2 (06:28→13:16)
[2019-12-20 06:50] LABS: BASO % 0.9 % (0-2.0); EOS % 3.6 % (0-4.5); HEMATOCRIT 23.5 % (32.4-45.2); HEMOGLOBIN 7.8 GM/dL (10.7-15.3); LYMPH % 21.1 % (8-40); MCH 27.7 pg (25.7-33.7); MCHC 33.1 g/dl (32.0-36.0); MEAN CELL VOLUME 83.7 fl (80-96); MEAN PLT VOLUME 8.9 fl (7.5-11.1); MONO % 13.3 % (3.8-10.2); NEUT % 61.1 % (42.8-82.8); PLATELET COUNT 193 K/MM3 (134-434); RBC 2.81 M/mm3 (3.60-5.2); WHITE BLOOD COUNT 5.4 K/mm3 (4.0-10.0)
[2019-12-20 07:02] LABS: POTASSIUM 3.9 mmol/L (3.5-5.1)
[2019-12-20 07:09] LABS: CALCIUM 8.9 mg/dL (8.5-10.1)
[2019-12-20 07:10] LABS: ALBUMIN 2.4 g/dl (3.4-5.0); BLOOD UREA NITROGEN 75.3 mg/dL (7-18); MAGNESIUM 2.9 mg/dL (1.8-2.4)
[2019-12-20 07:13] LABS: CREATININE 4.7 mg/dL (0.55-1.3); PHOSPHOROUS 6.3 mg/dL (2.5-4.9)
[2019-12-20 07:15] LABS: BILIRUBIN,TOTAL 0.4 mg/dL (0.2-1); TOT PROT 6.4 g/dl (6.4-8.2)
[2019-12-20] MEDS: HEPARIN NA (PORCINE) 5,000 UNITS/ML 1ML VIAL SQ SCH ×2 (09:24→09:26)
[2019-12-20] MEDS: CARVEDILOL 25 MG TABLET (FP) PO SCH (09:24)
[2019-12-20] MEDS ORDERED: ISOSORBIDE MONONITRATE 30 MG TAB.SR.24H (FP) PO SCH (10:00)
[2019-12-20] MEDS ORDERED: FERROUS SO4 325 MG TABLET (FP) PO SCH (10:00)
[2019-12-20] MEDS ORDERED: PATIENT'S OWN MEDICATION (NON-FORMULARY) (Irbesartan [Avapro] 300 MG) PO SCH (10:00)
[2019-12-20 10:43] VITALS: BP 132/61; PULSE 77; TEMP 98.2
[2019-12-20] MEDS ORDERED: POLYETHYLENE GLYCOL 3350 119 GM BTL PO ONE (13:06)
[2019-12-20] MEDS ORDERED: BISACODYL 10 MG SUPP.RECT PR ONE (13:13)
== END 2019-12-20 16:16 | disposition home or self-care (01) | DRG 251 ==
LOC: JER 06:42 → JERBED 12-19 13:05 → J4W 12-19 15:56
PROVIDERS: ATTEND Nurse Practitioner Family
DX: R10.9 Unspecified abdominal pain (principal); N17.9 Acute kidney failure, unspecified; I13.0 Hypertensive heart and chronic kidney disease with heart failure and stage 1 through stage 4 chronic kidney disease, or unspecified chronic kidney disease; I48.0 Paroxysmal atrial fibrillation; I31.3 Pericardial effusion (noninflammatory); I27.20 Pulmonary hypertension, unspecified; I50.22 Chronic systolic (congestive) heart failure; N18.4 Chronic kidney disease, stage 4 (severe); D64.9 Anemia, unspecified; Z86.711 Personal history of pulmonary embolism; Z86.19 Personal history of other infectious and parasitic diseases; I34.0 Nonrheumatic mitral (valve) insufficiency; R04.0 Epistaxis
CPT/HCPCS: 36415; 71275-TC; 74174-TC; 74176-TC; 80048; 80053; 81003; 82272; 83605; 83690; 83735; 84100; 84484; 85025; 85027; 85610; 85730; 86850; 86900; 86901; 87086; 93005; 93010; 93306-TC; 99285-25; C9803; J1644; U0003

== ENCOUNTER 2019-12-25 17:28 | Inpatient (IN) | payer OTHER ==
[2019-12-25] MEDS ORDERED: ACETAMINOPHEN 1000 MG/100 ML VIAL (NON FORMULARY) IVPB ONE (18:50)
[2019-12-25] MEDS ORDERED: ACETAMINOPHEN INJECTION 100 ML IVPB ONE (18:54)
[2019-12-25] MEDS ORDERED: morphine CARPU-JECT 2 MG/1 ML DISP.SYRIN IVPUSH ONE (19:36)
[2019-12-25] MEDS ORDERED: MORPHINE SULFATE 2 MG/ML VIAL ONE (19:44)
[2019-12-25 20:33] LABS: BASO % 1.3 % (0-2.0); EOS % 3.8 % (0-4.5); HEMATOCRIT 25.7 % (32.4-45.2); HEMOGLOBIN 8.1 GM/dL (10.7-15.3); LYMPH % 21.1 % (8-40); MCH 27.2 pg (25.7-33.7); MCHC 31.7 g/dl (32.0-36.0); MEAN CELL VOLUME 85.7 fl (80-96); MEAN PLT VOLUME 8.8 fl (7.5-11.1); MONO % 14.1 % (3.8-10.2); NEUT % 59.7 % (42.8-82.8); PLATELET COUNT 185 K/MM3 (134-434); RDW 19.3 % (11.6-15.6); WHITE BLOOD COUNT 5.1 K/mm3 (4.0-10.0)
[2019-12-25 20:41] LABS: INR 0.94 (0.83-1.09); PROTHROMBIN TIME (PATIENT) 11.6 SEC (9.7-13.0)
[2019-12-25 20:44] LABS: ACTIVATED PTT 27.1 SECONDS (25.2-36.5)
[2019-12-25 21:06] LABS: POTASSIUM 4.2 mmol/L (3.5-5.1)
[2019-12-25 21:08] LABS: CALCIUM 9.1 mg/dL (8.5-10.1)
[2019-12-25 21:09] LABS: ALBUMIN 2.5 g/dl (3.4-5.0); BLOOD UREA NITROGEN 55.4 mg/dL (7-18)
[2019-12-25 21:12] LABS: CREATININE 4.6 mg/dL (0.55-1.3)
[2019-12-25 21:13] LABS: BILIRUBIN,TOTAL 0.3 mg/dL (0.2-1); TOT PROT 6.9 g/dl (6.4-8.2)
[2019-12-25 21:29] LABS: EPI CELLS 25 /uL (0-25.1); HYALINE CASTS 0 /uL (0-3.1); PH,URINE 7.5 (5.0-8.0); URINE APPEARANCE CLEAR; URINE BACTERIA 576 /uL (0-1359); URINE BILIRUBIN NEGATIVE (NEGATIVE); URINE COLOR YELLOW; URINE GLUCOSE (UA) NEGATIVE (NEGATIVE); URINE KETONE NEGATIVE (NEGATIVE); URINE LEUK ESTERASE TRACE (NEGATIVE); URINE NITRITE NEGATIVE (NEGATIVE); URINE PROTEIN 2+ (NEGATIVE); URINE RBC 11 /uL (0-23.9); URINE UROBILINOGEN 0.2 mg/dL (0.2-1.0); URINE WBC 21 /uL (0-25.8)
[2019-12-26] MEDS ORDERED: MORPHINE SULFATE 2 MG/ML VIAL IVPUSH PRN (00:47)
[2019-12-26] MEDS ORDERED: PANTOPRAZOLE 40 MG TABLET ONE ×2 (01:15→09:01)
[2019-12-26] MEDS: PANTOPRAZOLE 40 MG TABLET PO SCH ×3 (01:19→21:48)
[2019-12-26 05:58] LABS: HEMATOCRIT 23.5 % (32.4-45.2); HEMOGLOBIN 7.5 GM/dL (10.7-15.3); MCH 26.9 pg (25.7-33.7); MCHC 31.9 g/dl (32.0-36.0); MEAN CELL VOLUME 84.4 fl (80-96); MEAN PLT VOLUME 8.3 fl (7.5-11.1); PLATELET COUNT 173 K/MM3 (134-434); RBC 2.78 M/mm3 (3.60-5.2)
[2019-12-26 06:00] LABS: INR 0.97 (0.83-1.09)
[2019-12-26 06:12] LABS: POTASSIUM 3.6 mmol/L (3.5-5.1)
[2019-12-26] MEDS: hydrALAZINE HCL 10 MG TABLET PO SCH ×3 (06:12→21:48)
[2019-12-26] MEDS: FUROSEMIDE 20 MG TABLET (FP) PO SCH ×2 (06:12→13:05)
[2019-12-26 06:16] LABS: ALBUMIN 2.4 g/dl (3.4-5.0); BLOOD UREA NITROGEN 52.1 mg/dL (7-18); CALCIUM 9.1 mg/dL (8.5-10.1); MAGNESIUM 2.8 mg/dL (1.8-2.4)
[2019-12-26 06:20] LABS: CREATININE 4.3 mg/dL (0.55-1.3); PHOSPHOROUS 5.5 mg/dL (2.5-4.9)
[2019-12-26 06:21] LABS: BILIRUBIN,TOTAL 0.4 mg/dL (0.2-1); TOT PROT 6.4 g/dl (6.4-8.2)
[2019-12-26] MEDS: CARVEDILOL 25 MG TABLET (FP) PO SCH ×2 (09:14→21:48)
[2019-12-26] MEDS: ISOSORBIDE MONONITRATE 30 MG TAB.SR.24H (FP) PO SCH (09:14)
[2019-12-26 09:16] LABS: RETICULOCYTES 1.29 % (0.5-1.5)
[2019-12-26] MEDS ORDERED: PATIENT'S OWN MEDICATION (NON-FORMULARY) (Irbesartan [Avapro] 300 MG Tablet) PO SCH (10:00)
[2019-12-26] MEDS ORDERED: FUROSEMIDE 40 MG TABLET (FP) ONE (12:17)
[2019-12-26 13:44] LABS: HEMATOCRIT 24.7 % (32.4-45.2); HEMOGLOBIN 7.8 GM/dL (10.7-15.3); MCH 26.6 pg (25.7-33.7); MCHC 31.5 g/dl (32.0-36.0); MEAN CELL VOLUME 84.6 fl (80-96); PLATELET COUNT 178 K/MM3 (134-434); RBC 2.92 M/mm3 (3.60-5.2); RDW 18.8 % (11.6-15.6); WHITE BLOOD COUNT 4.5 K/mm3 (4.0-10.0)
[2019-12-26] MEDS ORDERED: FUROSEMIDE 20 MG TABLET (FP) PO SCH (14:29)
[2019-12-26 21:02] VITALS: BMI 26.4
[2019-12-27] MEDS: hydrALAZINE HCL 10 MG TABLET PO SCH ×2 (05:56→13:26)
[2019-12-27] MEDS: FUROSEMIDE 40 MG TABLET (FP) PO SCH ×2 (05:56→13:26)
[2019-12-27] MEDS ORDERED: PT OWN MED DRAWER 7, Y5N ONE ×2 (06:21→10:46)
[2019-12-27 08:15] LABS: BASO % 1.2 % (0-2.0); EOS % 4.6 % (0-4.5); HEMATOCRIT 24.7 % (32.4-45.2); HEMOGLOBIN 7.7 GM/dL (10.7-15.3); LYMPH % 22.9 % (8-40); MCH 26.5 pg (25.7-33.7); MCHC 31.3 g/dl (32.0-36.0); MEAN CELL VOLUME 84.6 fl (80-96); MEAN PLT VOLUME 8.4 fl (7.5-11.1); MONO % 12.3 % (3.8-10.2); PLATELET COUNT 177 K/MM3 (134-434); RBC 2.91 M/mm3 (3.60-5.2); RDW 18.8 % (11.6-15.6); WHITE BLOOD COUNT 4.4 K/mm3 (4.0-10.0)
[2019-12-27 08:31] LABS: POTASSIUM 3.7 mmol/L (3.5-5.1)
[2019-12-27 08:33] LABS: CALCIUM 9.3 mg/dL (8.5-10.1)
[2019-12-27 08:34] LABS: ALBUMIN 2.5 g/dl (3.4-5.0); BLOOD UREA NITROGEN 50.5 mg/dL (7-18); MAGNESIUM 2.7 mg/dL (1.8-2.4)
[2019-12-27 08:37] LABS: CREATININE 4.5 mg/dL (0.55-1.3)
[2019-12-27 08:40] LABS: BILIRUBIN,TOTAL 0.4 mg/dL (0.2-1); TOT PROT 6.4 g/dl (6.4-8.2)
[2019-12-27] MEDS ORDERED: DULoxetine HCL 20 MG CAPSULE.DR PO SCH (10:00)
[2019-12-27] MEDS: PANTOPRAZOLE 40 MG TABLET PO SCH (10:39)
[2019-12-27] MEDS: CARVEDILOL 25 MG TABLET (FP) PO SCH (10:39)
[2019-12-27] MEDS: ISOSORBIDE MONONITRATE 30 MG TAB.SR.24H (FP) PO SCH (10:39)
[2019-12-27 14:29] VITALS: BP 113/78; PULSE 78; TEMP 98.8
== END 2019-12-27 17:35 | disposition short-term general hospital (02) | DRG 253 ==
LOC: JER 17:28 → JERBED 23:12 → J6S 12-26 20:33
PROVIDERS: ADMIT Internal Medicine; ATTEND Nurse Practitioner Acute Care
DX: K62.5 Hemorrhage of anus and rectum (principal); I13.0 Hypertensive heart and chronic kidney disease with heart failure and stage 1 through stage 4 chronic kidney disease, or unspecified chronic kidney disease; I50.22 Chronic systolic (congestive) heart failure; N18.4 Chronic kidney disease, stage 4 (severe); I48.0 Paroxysmal atrial fibrillation; E88.09 Other disorders of plasma-protein metabolism, not elsewhere classified; I31.3 Pericardial effusion (noninflammatory); D64.9 Anemia, unspecified; E78.5 Hyperlipidemia, unspecified; R04.0 Epistaxis; D63.1 Anemia in chronic kidney disease; F32.9 Major depressive disorder, single episode, unspecified; Z86.711 Personal history of pulmonary embolism; Z86.19 Personal history of other infectious and parasitic diseases
CPT/HCPCS: 36415; 74176-TC; 80053; 81003; 82272; 82550; 82728; 83540; 83550; 83690; 83735; 84100; 84466; 84484; 85025; 85027; 85045; 85610; 85730; 86850; 86900; 86901; 87086; 93005; 93010; 97116-GP; 97161-GP; 99285-25; C9803; J0131; U0003

== ENCOUNTER 2021-08-31 08:21 | Inpatient (IN) | payer OTHER ==
[2021-08-31 08:58] VITALS: BMI 25.0
[2021-08-31] MEDS ORDERED: FUROSEMIDE 40 MG/4 ML INJECTABLE VIAL IVPUSH ONE (09:28)
[2021-08-31] MEDS ORDERED: FUROSEMIDE 40 MG/4 ML INJECTABLE VIAL ONE (09:35)
[2021-08-31 09:44] LABS: VENOUS BASE EXCESS -8.3 mmol/L (-2-2); VENOUS O2 SATURATION 85.6 % (70-80); VENOUS PCO2 32.4 mmHg (38-52); VENOUS PH 7.331 (7.310-7.410)
[2021-08-31] MEDS ORDERED: ONDANSETRON 4 MG/2 ML VIAL IVPUSH ONE (09:45)
[2021-08-31 09:51] LABS: INR 1.03 (0.83-1.09); PROTHROMBIN TIME (PATIENT) 11.8 SEC (9.7-13.0)
[2021-08-31] MEDS ORDERED: ONDANSETRON 4 MG/2 ML VIAL ONE (09:51)
[2021-08-31 10:03] LABS: ALBUMIN 3.1 g/dl (3.4-5.0); BLOOD UREA NITROGEN 57.4 mg/dL (7-18); CALCIUM 9.6 mg/dL (8.5-10.1)
[2021-08-31 10:06] LABS: CREATININE 5.2 mg/dL (0.55-1.3)
[2021-08-31 10:08] LABS: BASO % 0.8 % (0-2.0); BILIRUBIN,TOTAL 0.5 mg/dL (0.2-1); EOS % 1.7 % (0-4.5); HEMATOCRIT 24.4 % (32.4-45.2); HEMOGLOBIN 7.9 GM/dL (10.7-15.3); LYMPH % 6.6 % (8-40); MCH 26.7 pg (25.7-33.7); MCHC 32.4 g/dl (32.0-36.0); MEAN CELL VOLUME 82.4 fl (80-96); MEAN PLT VOLUME 8.7 fl (7.5-11.1); MONO % 6.7 % (3.8-10.2); NEUT % 84.2 % (42.8-82.8); PLATELET COUNT 127 10^3/uL (134-434); RBC 2.96 M/mm3 (3.60-5.2); RDW 17.9 % (11.6-15.6); WHITE BLOOD COUNT 8.4 K/mm3 (4.0-10.0)
[2021-08-31] MEDS ORDERED: POLYETHYLENE GLYCOL (HEALTHYLAX) 3350 17 GM PACKET PO PRN (11:27)
[2021-08-31] MEDS ORDERED: SODIUM CHLORIDE 250 ML IV PRN (12:00)
[2021-08-31] MEDS: SEVELAMER CARBONATE 800 MG TAB (FP) PO SCH ×2 (13:48→16:34)
[2021-08-31] MEDS: PANTOPRAZOLE 40 MG TABLET PO SCH (13:49)
[2021-08-31] MEDS ORDERED: SODIUM BICARBONATE 650 MG TABLET PO SCH (14:00)
[2021-08-31] MEDS ORDERED: EPOETIN ALFA-EPBX 4,000 UNIT/ML VIAL IVPUSH ONE (14:45)
[2021-08-31] MEDS ORDERED: NITROGLYCERIN SUBLINGUAL 1/150 0.4 MG TAB SL PRN (16:32)
[2021-08-31] MEDS ORDERED: ALBUTEROL SO4 HFA INHALER IH PRN (16:32)
[2021-08-31] MEDS: ATORVASTATIN CA 80 MG TABLET (FP) PO SCH (21:29)
[2021-08-31] MEDS: CARVEDILOL 12.5 MG TABLET (FP) PO SCH (21:29)
[2021-08-31] MEDS: ISOSORBIDE DINITRATE 10 MG TABLET PO SCH (21:31)
[2021-08-31] MEDS: hydrALAZINE HCL 50 MG TABLET (FP) PO SCH (21:31)
[2021-09-01] MEDS: hydrALAZINE HCL 50 MG TABLET (FP) PO SCH ×2 (06:15→13:58)
[2021-09-01 07:37] LABS: BASO % 0.9 % (0-2.0); EOS % 2.7 % (0-4.5); HEMATOCRIT 23.5 % (32.4-45.2); HEMOGLOBIN 7.7 GM/dL (10.7-15.3); LYMPH % 19.1 % (8-40); MCH 26.9 pg (25.7-33.7); MCHC 32.8 g/dl (32.0-36.0); MEAN CELL VOLUME 81.9 fl (80-96); MONO % 12.2 % (3.8-10.2); NEUT % 65.1 % (42.8-82.8); PLATELET COUNT 125 10^3/uL (134-434); RBC 2.87 M/mm3 (3.60-5.2); RDW 17.7 % (11.6-15.6); WHITE BLOOD COUNT 4.2 K/mm3 (4.0-10.0)
[2021-09-01] MEDS: SEVELAMER CARBONATE 800 MG TAB (FP) PO SCH ×3 (08:02→17:12)
[2021-09-01] MEDS: ISOSORBIDE DINITRATE 10 MG TABLET PO SCH ×3 (08:02→17:29)
[2021-09-01 08:04] LABS: CALCIUM 9.3 mg/dL (8.5-10.1)
[2021-09-01 08:05] LABS: ALBUMIN 2.8 g/dl (3.4-5.0); MAGNESIUM 2.5 mg/dL (1.8-2.4)
[2021-09-01 08:07] LABS: BILIRUBIN,TOTAL 0.6 mg/dL (0.2-1); TOT PROT 6.8 g/dl (6.4-8.2)
[2021-09-01 08:08] LABS: CREATININE 3.2 mg/dL (0.55-1.3); PHOSPHOROUS 3.2 mg/dL (2.5-4.9)
[2021-09-01 08:10] LABS: BLOOD UREA NITROGEN 24.2 mg/dL (7-18)
[2021-09-01] MEDS: PANTOPRAZOLE 40 MG TABLET PO SCH (09:20)
[2021-09-01] MEDS: CALCITRIOL 0.25 MCG CAPSULE (FP) PO SCH (09:20)
[2021-09-01] MEDS: FERROUS SO4 325 MG TABLET (FP) PO SCH (09:20)
[2021-09-01] MEDS: CARVEDILOL 12.5 MG TABLET (FP) PO SCH (09:21)
[2021-09-01] MEDS: ACETAMINOPHEN 325 MG TABLET (FP) PO PRN (10:57)
[2021-09-01 11:41] LABS: EPI CELLS 7 /uL (0-25.1); HYALINE CASTS 0 /uL (0-3.1); URINE APPEARANCE CLOUDY; URINE BACTERIA 1 /uL (0-1359); URINE BILIRUBIN NEGATIVE (NEGATIVE); URINE COLOR YELLOW; URINE GLUCOSE (UA) NEGATIVE (NEGATIVE); URINE KETONE NEGATIVE (NEGATIVE); URINE LEUK ESTERASE NEGATIVE (NEGATIVE); URINE NITRITE NEGATIVE (NEGATIVE); URINE PROTEIN 3+ (NEGATIVE); URINE RBC 3 /uL (0-23.9); URINE UROBILINOGEN 0.2 mg/dL (0.2-1.0); URINE WBC 3 /uL (0-25.8)
[2021-09-01] MEDS ORDERED: cefTRIAXone SODIUM 1 GM VIAL ONE (13:11)
[2021-09-01] MEDS ORDERED: DEXTROSE 5%-WATER - 50 ML IVPB ONE (13:11)
[2021-09-01] MEDS: CEFTRIAXONE 1 GM in DEXTROSE 5%-WATER - 50 ML IVPB SCH (13:32)
[2021-09-01] MEDS ORDERED: DEXTROSE 5%-WATER 100 ML IVPB ONE ×2 (15:28→20:41)
[2021-09-01] MEDS ORDERED: DOXYCYCLINE HYCLATE 100 MG VIAL ONE ×2 (15:28→20:41)
[2021-09-01] MEDS: DOXYCYCLINE INJECTION 100 MG in DEXTROSE 5%-WATER 100 ML IVPB SCH ×2 (15:41→21:03)
[2021-09-01] MEDS ORDERED: SODIUM CHLORIDE 250 ML IV STA (16:58)
[2021-09-01] MEDS: ATORVASTATIN CA 80 MG TABLET (FP) PO SCH (21:03)
[2021-09-02 07:26] LABS: EOS % 3.9 % (0-4.5); HEMATOCRIT 22.6 % (32.4-45.2); HEMOGLOBIN 7.3 GM/dL (10.7-15.3); LYMPH % 20.8 % (8-40); MCH 26.8 pg (25.7-33.7); MCHC 32.5 g/dl (32.0-36.0); MEAN CELL VOLUME 82.6 fl (80-96); MEAN PLT VOLUME 8.9 fl (7.5-11.1); MONO % 12.8 % (3.8-10.2); NEUT % 61.5 % (42.8-82.8); PLATELET COUNT 118 10^3/uL (134-434); RBC 2.74 M/mm3 (3.60-5.2); RDW 17.7 % (11.6-15.6); WHITE BLOOD COUNT 4.8 K/mm3 (4.0-10.0)
[2021-09-02 07:49] LABS: MAGNESIUM 2.5 mg/dL (1.8-2.4)
[2021-09-02] MEDS: SEVELAMER CARBONATE 800 MG TAB (FP) PO SCH ×3 (07:50→17:04)
[2021-09-02 07:52] LABS: PHOSPHOROUS 3.9 mg/dL (2.5-4.9)
[2021-09-02] MEDS ORDERED: SODIUM CHLORIDE 250 ML IV PRN (08:00)
[2021-09-02] MEDS ORDERED: EPOETIN ALFA-EPBX 10,000 UNIT/ML VIAL SQ ONE (08:00)
[2021-09-02] MEDS: ISOSORBIDE DINITRATE 10 MG TABLET PO SCH ×2 (09:22→12:09)
[2021-09-02 10:27] LABS: CALCIUM 9.6 mg/dL (8.5-10.1)
[2021-09-02 10:32] LABS: BILIRUBIN,TOTAL 0.4 mg/dL (0.2-1); TOT PROT 6.7 g/dl (6.4-8.2)
[2021-09-02] MEDS ORDERED: DEXTROSE 5%-WATER - 50 ML IVPB ONE (12:00)
[2021-09-02] MEDS ORDERED: cefTRIAXone SODIUM 1 GM VIAL ONE (12:00)
[2021-09-02] MEDS ORDERED: DEXTROSE 5%-WATER 100 ML IVPB ONE ×2 (12:00→21:38)
[2021-09-02] MEDS ORDERED: DOXYCYCLINE HYCLATE 100 MG VIAL ONE ×2 (12:00→21:38)
[2021-09-02] MEDS: CALCITRIOL 0.25 MCG CAPSULE (FP) PO SCH (12:07)
[2021-09-02] MEDS: PANTOPRAZOLE 40 MG TABLET PO SCH (12:08)
[2021-09-02] MEDS: FERROUS SO4 325 MG TABLET (FP) PO SCH (12:09)
[2021-09-02] MEDS: CEFTRIAXONE 1 GM in DEXTROSE 5%-WATER - 50 ML IVPB SCH (12:09)
[2021-09-02] MEDS: DOXYCYCLINE INJECTION 100 MG in DEXTROSE 5%-WATER 100 ML IVPB SCH ×2 (13:03→21:42)
[2021-09-02] MEDS: ACETAMINOPHEN 325 MG TABLET (FP) PO PRN (14:07)
[2021-09-02] MEDS: ATORVASTATIN CA 80 MG TABLET (FP) PO SCH (21:42)
[2021-09-03] MEDS: ACETAMINOPHEN 325 MG TABLET (FP) PO PRN (01:42)
[2021-09-03] MEDS: SEVELAMER CARBONATE 800 MG TAB (FP) PO SCH ×3 (07:40→17:55)
[2021-09-03 09:02] LABS: HEMATOCRIT 26.1 % (32.4-45.2); HEMOGLOBIN 8.6 GM/dL (10.7-15.3); MCHC 32.8 g/dl (32.0-36.0); MEAN CELL VOLUME 82.2 fl (80-96); MEAN PLT VOLUME 8.7 fl (7.5-11.1); PLATELET COUNT 151 10^3/uL (134-434); RBC 3.18 M/mm3 (3.60-5.2); RDW 17.4 % (11.6-15.6); WHITE BLOOD COUNT 7.5 K/mm3 (4.0-10.0)
[2021-09-03] MEDS ORDERED: DEXTROSE 5%-WATER - 50 ML IVPB ONE (09:24)
[2021-09-03] MEDS ORDERED: cefTRIAXone SODIUM 1 GM VIAL ONE (09:24)
[2021-09-03] MEDS: PANTOPRAZOLE 40 MG TABLET PO SCH (09:37)
[2021-09-03] MEDS: CEFTRIAXONE 1 GM in DEXTROSE 5%-WATER - 50 ML IVPB SCH (09:37)
[2021-09-03] MEDS: CALCITRIOL 0.25 MCG CAPSULE (FP) PO SCH (09:37)
[2021-09-03] MEDS: FERROUS SO4 325 MG TABLET (FP) PO SCH (09:37)
[2021-09-03 09:45] LABS: ALBUMIN 3.1 g/dl (3.4-5.0); BLOOD UREA NITROGEN 39.4 mg/dL (7-18); MAGNESIUM 2.1 mg/dL (1.8-2.4)
[2021-09-03 09:48] LABS: PHOSPHOROUS 4.1 mg/dL (2.5-4.9)
[2021-09-03 09:49] LABS: BILIRUBIN,TOTAL 0.5 mg/dL (0.2-1); TOT PROT 7.4 g/dl (6.4-8.2)
[2021-09-03] MEDS ORDERED: DEXTROSE 5%-WATER 100 ML IVPB ONE ×2 (10:13→21:01)
[2021-09-03] MEDS ORDERED: DOXYCYCLINE HYCLATE 100 MG VIAL ONE ×2 (10:13→21:01)
[2021-09-03] MEDS: DOXYCYCLINE INJECTION 100 MG in DEXTROSE 5%-WATER 100 ML IVPB SCH ×2 (10:15→22:59)
[2021-09-03] MEDS: SIMETHICONE 80 MG TAB.CHEW (FP) PO PRN ×2 (14:39→23:00)
[2021-09-03] MEDS: ATORVASTATIN CA 80 MG TABLET (FP) PO SCH (22:58)
[2021-09-04] MEDS: ACETAMINOPHEN 325 MG TABLET (FP) PO PRN (06:42)
[2021-09-04] MEDS: SEVELAMER CARBONATE 800 MG TAB (FP) PO SCH ×3 (08:03→16:47)
[2021-09-04] MEDS ORDERED: cefTRIAXone SODIUM 1 GM VIAL ONE (09:45)
[2021-09-04] MEDS ORDERED: DEXTROSE 5%-WATER - 50 ML IVPB ONE (09:46)
[2021-09-04] MEDS: PANTOPRAZOLE 40 MG TABLET PO SCH (09:49)
[2021-09-04] MEDS: FERROUS SO4 325 MG TABLET (FP) PO SCH (09:49)
[2021-09-04] MEDS: CALCITRIOL 0.25 MCG CAPSULE (FP) PO SCH (09:49)
[2021-09-04] MEDS: CEFTRIAXONE 1 GM in DEXTROSE 5%-WATER - 50 ML IVPB SCH (09:50)
[2021-09-04 10:33] LABS: BASO % 0.7 % (0-2.0); EOS % 1.6 % (0-4.5); HEMATOCRIT 26.5 % (32.4-45.2); HEMOGLOBIN 8.7 GM/dL (10.7-15.3); LYMPH % 10.9 % (8-40); MCH 27.1 pg (25.7-33.7); MCHC 32.8 g/dl (32.0-36.0); MEAN CELL VOLUME 82.7 fl (80-96); MEAN PLT VOLUME 8.3 fl (7.5-11.1); MONO % 7.3 % (3.8-10.2); NEUT % 79.5 % (42.8-82.8); PLATELET COUNT 157 10^3/uL (134-434); RBC 3.21 M/mm3 (3.60-5.2); RDW 18.6 % (11.6-15.6); WHITE BLOOD COUNT 6.5 K/mm3 (4.0-10.0)
[2021-09-04] MEDS ORDERED: DOXYCYCLINE HYCLATE 100 MG VIAL ONE ×2 (10:39→21:49)
[2021-09-04] MEDS ORDERED: DEXTROSE 5%-WATER 100 ML IVPB ONE ×2 (10:40→21:49)
[2021-09-04] MEDS: DOXYCYCLINE INJECTION 100 MG in DEXTROSE 5%-WATER 100 ML IVPB SCH ×2 (10:50→21:52)
[2021-09-04] MEDS: SIMETHICONE 80 MG TAB.CHEW (FP) PO PRN (11:55)
[2021-09-04] MEDS: ATORVASTATIN CA 80 MG TABLET (FP) PO SCH (21:52)
[2021-09-05] MEDS: SEVELAMER CARBONATE 800 MG TAB (FP) PO SCH ×3 (07:45→17:44)
[2021-09-05] MEDS ORDERED: SODIUM CHLORIDE 250 ML IV PRN (09:00)
[2021-09-05] MEDS ORDERED: EPOETIN ALFA-EPBX 10,000 UNIT/ML VIAL IVPUSH ONE (09:00)
[2021-09-05 09:10] LABS: BASO % 0.9 % (0-2.0); HEMATOCRIT 25.2 % (32.4-45.2); HEMOGLOBIN 8.3 GM/dL (10.7-15.3); LYMPH % 19.3 % (8-40); MCH 26.9 pg (25.7-33.7); MEAN CELL VOLUME 81.5 fl (80-96); MEAN PLT VOLUME 8.8 fl (7.5-11.1); MONO % 11.8 % (3.8-10.2); PLATELET COUNT 147 10^3/uL (134-434); RBC 3.09 M/mm3 (3.60-5.2); RDW 17.8 % (11.6-15.6); WHITE BLOOD COUNT 5.1 K/mm3 (4.0-10.0)
[2021-09-05 09:22] LABS: CALCIUM 9.5 mg/dL (8.5-10.1)
[2021-09-05 09:23] LABS: BLOOD UREA NITROGEN 63.8 mg/dL (7-18)
[2021-09-05 09:26] LABS: CREATININE 5.7 mg/dL (0.55-1.3)
[2021-09-05] MEDS ORDERED: DEXTROSE 5%-WATER - 50 ML IVPB ONE (11:31)
[2021-09-05] MEDS ORDERED: cefTRIAXone SODIUM 1 GM VIAL ONE (11:31)
[2021-09-05] MEDS: HYDROCORTISONE 2.5% TOPICAL CREAM 30 GM TUBE TP SCH ×2 (11:36→21:04)
[2021-09-05] MEDS: CALCITRIOL 0.25 MCG CAPSULE (FP) PO SCH (11:37)
[2021-09-05] MEDS: CEFTRIAXONE 1 GM in DEXTROSE 5%-WATER - 50 ML IVPB SCH (11:38)
[2021-09-05] MEDS: FERROUS SO4 325 MG TABLET (FP) PO SCH (11:39)
[2021-09-05] MEDS: PANTOPRAZOLE 40 MG TABLET PO SCH (11:39)
[2021-09-05] MEDS: SIMETHICONE 80 MG TAB.CHEW (FP) PO PRN ×2 (11:42→17:44)
[2021-09-05] MEDS ORDERED: DOXYCYCLINE HYCLATE 100 MG VIAL ONE (12:55)
[2021-09-05] MEDS: DOXYCYCLINE INJECTION 100 MG in DEXTROSE 5%-WATER 100 ML IVPB SCH (13:00)
[2021-09-05] MEDS: ATORVASTATIN CA 80 MG TABLET (FP) PO SCH (21:04)
[2021-09-06 06:50] LABS: BASO % 1.1 % (0-2.0); EOS % 2.6 % (0-4.5); HEMATOCRIT 25.3 % (32.4-45.2); HEMOGLOBIN 8.3 GM/dL (10.7-15.3); MCH 26.9 pg (25.7-33.7); MCHC 32.9 g/dl (32.0-36.0); MEAN CELL VOLUME 81.9 fl (80-96); MEAN PLT VOLUME 8.6 fl (7.5-11.1); MONO % 16.2 % (3.8-10.2); NEUT % 55.1 % (42.8-82.8); PLATELET COUNT 135 10^3/uL (134-434); RDW 18.1 % (11.6-15.6); WHITE BLOOD COUNT 4.4 K/mm3 (4.0-10.0)
[2021-09-06 07:08] LABS: CALCIUM 9.9 mg/dL (8.5-10.1)
[2021-09-06 07:09] LABS: ALBUMIN 3.1 g/dl (3.4-5.0)
[2021-09-06 07:12] LABS: CREATININE 3.8 mg/dL (0.55-1.3); PHOSPHOROUS 4.3 mg/dL (2.5-4.9)
[2021-09-06 07:14] LABS: BILIRUBIN,TOTAL 0.4 mg/dL (0.2-1); TOT PROT 7.1 g/dl (6.4-8.2)
[2021-09-06 07:31] LABS: BLOOD UREA NITROGEN 25.8 mg/dL (7-18)
[2021-09-06] MEDS: CALCITRIOL 0.25 MCG CAPSULE (FP) PO SCH (09:25)
[2021-09-06] MEDS: SEVELAMER CARBONATE 800 MG TAB (FP) PO SCH ×3 (09:25→17:34)
[2021-09-06] MEDS: HYDROCORTISONE 2.5% TOPICAL CREAM 30 GM TUBE TP SCH ×2 (09:26→22:20)
[2021-09-06] MEDS: POLYETHYLENE GLYCOL (HEALTHYLAX) 3350 17 GM PACKET PO SCH (09:56)
[2021-09-06] MEDS: SIMETHICONE 80 MG TAB.CHEW (FP) PO PRN (17:39)
[2021-09-06] MEDS: ATORVASTATIN CA 80 MG TABLET (FP) PO SCH (22:20)
[2021-09-07 08:04] LABS: CALCIUM 9.6 mg/dL (8.5-10.1); MAGNESIUM 2.3 mg/dL (1.8-2.4)
[2021-09-07 08:07] LABS: CREATININE 4.4 mg/dL (0.55-1.3); PHOSPHOROUS 4.1 mg/dL (2.5-4.9)
[2021-09-07] MEDS: SEVELAMER CARBONATE 800 MG TAB (FP) PO SCH ×3 (09:00→16:53)
[2021-09-07 09:06] VITALS: RESP 18
[2021-09-07] MEDS: HYDROCORTISONE 2.5% TOPICAL CREAM 30 GM TUBE TP SCH (09:29)
[2021-09-07] MEDS: CALCITRIOL 0.25 MCG CAPSULE (FP) PO SCH (09:29)
[2021-09-07] MEDS: POLYETHYLENE GLYCOL (HEALTHYLAX) 3350 17 GM PACKET PO SCH (09:29)
[2021-09-07 11:11] VITALS: TEMP 97.8
[2021-09-07 11:32] LABS: HEMATOCRIT 24.1 % (32.4-45.2); HEMOGLOBIN 8.1 GM/dL (10.7-15.3); MCH 27.4 pg (25.7-33.7); MCHC 33.5 g/dl (32.0-36.0); MEAN CELL VOLUME 81.9 fl (80-96); MEAN PLT VOLUME 8.1 fl (7.5-11.1); PLATELET COUNT 122 10^3/uL (134-434); RBC 2.94 M/mm3 (3.60-5.2); RDW 18.1 % (11.6-15.6); WHITE BLOOD COUNT 4.2 K/mm3 (4.0-10.0)
[2021-09-07] MEDS ORDERED: EPOETIN ALFA-EPBX 10,000 UNIT/ML VIAL IVPUSH ONE (12:00)
[2021-09-07] MEDS ORDERED: SODIUM CHLORIDE 250 ML IV PRN (12:00)
[2021-09-07 14:39] VITALS: BP 122/77; PULSE 91
== END 2021-09-07 17:59 | disposition home or self-care (01) | DRG 291 ==
LOC: JER 08:21 → JERBED 11:06 → J4W 13:37
PROVIDERS: ADMIT Internal Medicine
PROC: 5A1D70Z Performance of Urinary Filtration, Intermittent, Less than 6 Hours Per Day (ICD-10-PCS; principal; 2021-09-07)
DX: I13.2 Hypertensive heart and chronic kidney disease with heart failure and with stage 5 chronic kidney disease, or end stage renal disease (principal); N18.6 End stage renal disease; J81.0 Acute pulmonary edema; I50.23 Acute on chronic systolic (congestive) heart failure; J96.00 Acute respiratory failure, unspecified whether with hypoxia or hypercapnia; K92.2 Gastrointestinal hemorrhage, unspecified; I31.3 Pericardial effusion (noninflammatory); E87.70 Fluid overload, unspecified; D63.1 Anemia in chronic kidney disease; E78.5 Hyperlipidemia, unspecified; I25.10 Atherosclerotic heart disease of native coronary artery without angina pectoris; K21.9 Gastro-esophageal reflux disease without esophagitis; Z99.2 Dependence on renal dialysis; K64.9 Unspecified hemorrhoids; I48.0 Paroxysmal atrial fibrillation; I71.9 Aortic aneurysm of unspecified site, without rupture; M32.9 Systemic lupus erythematosus, unspecified; I34.0 Nonrheumatic mitral (valve) insufficiency; F17.200 Nicotine dependence, unspecified, uncomplicated; K59.00 Constipation, unspecified; R50.9 Fever, unspecified; R07.9 Chest pain, unspecified
CPT/HCPCS: 36415; 71045-TC-FY; 74176-TC; 80048; 80053; 81003; 82728; 82803; 83540; 83550; 83690; 83735; 84100; 84484; 85025; 85027; 85610; 86803; 86850; 86900; 86901; 87040; 87086; 87340; 87899; 93005; 93010; 97116-GP; 97161-GP; 99285-25; C9803-CS; Q5106; U0003; U0005

== ENCOUNTER 2022-09-23 21:56 | Observation (INO) | payer OTHER ==
[2022-09-23 22:16] VITALS: BMI 25.4
[2022-09-23] MEDS ORDERED: ACETAMINOPHEN 1000 MG/100 ML BAG IVPB ONE (23:30)
[2022-09-23] MEDS ORDERED: ACETAMINOPHEN INJECTION 100 ML IVPB ONE (23:32)
[2022-09-23 23:37] LABS: BASO % 1.5 % (0-2.0); EOS % 2.1 % (0-4.5); HEMATOCRIT 42.5 % (32.4-45.2); HEMOGLOBIN 13.4 GM/dL (10.7-15.3); LYMPH % 20.9 % (8-40); MCH 27.8 pg (25.7-33.7); MCHC 31.5 g/dl (32.0-36.0); MEAN CELL VOLUME 88.1 fl (80-96); MEAN PLT VOLUME 9.4 fl (7.5-11.1); MONO % 14.8 % (3.8-10.2); NEUT % 60.7 % (42.8-82.8); PLATELET COUNT 108 10^3/uL (134-434); RBC 4.83 M/mm3 (3.60-5.2); RDW 26.8 % (11.6-15.6); WHITE BLOOD COUNT 5.3 K/mm3 (4.0-10.0)
[2022-09-23 23:43] LABS: INR 1.05 (0.83-1.09); PROTHROMBIN TIME (PATIENT) 12.2 SEC (9.7-13.0)
[2022-09-23 23:57] LABS: ALBUMIN 3.4 g/dl (3.4-5.0); BLOOD UREA NITROGEN 18.4 mg/dL (7-18); MAGNESIUM 2.4 mg/dL (1.8-2.4)
[2022-09-24] LABS: CREATININE 4.5 mg/dL (0.55-1.3); PHOSPHOROUS 3.6 mg/dL (2.5-4.9)
[2022-09-24 00:02] LABS: BILIRUBIN,TOTAL 0.6 mg/dL (0.2-1); TOT PROT 8.1 g/dl (6.4-8.2)
[2022-09-24 00:05] LABS: ANISOCYTOSIS 3+; OVALOCYTE 1+; TEAR DROP CELLS 1+
[2022-09-24 00:06] LABS: PLATELET ESTIMATE DECREASED
[2022-09-24] MEDS ORDERED: NITROGLYCERIN SUBLINGUAL 1/150 0.4 MG TAB SL ONE (00:37)
[2022-09-24] MEDS ORDERED: morphine CARPU-JECT 4 MG/1 ML DISP.SYRIN IVPUSH ONE (01:04)
[2022-09-24] MEDS ORDERED: HYDROmorphone HCl 2 MG/ML VIAL IVPUSH PRN (02:23)
[2022-09-24] MEDS ORDERED: SIMETHICONE 80 MG TAB.CHEW (FP) PO PRN (02:29)
[2022-09-24] MEDS ORDERED: PANTOPRAZOLE SODIUM 40 MG VIAL IVPUSH ONE (02:29)
[2022-09-24] MEDS ORDERED: TRIMETHOBENZAMIDE HCL 200MG/2ML INJ IM PRN (02:37)
[2022-09-24] MEDS: LACTATED RINGERS SOLUTION 1,000 ML/1,000 ML INFUS.BAG IV SCH (03:44)
[2022-09-24] MEDS ORDERED: SENNOSIDES 8.6MG TABLET (FP) PO PRN (05:11)
[2022-09-24] MEDS ORDERED: HYDROmorphone HCl 2 MG/ML VIAL ONE (08:48)
[2022-09-24] MEDS ORDERED: ACETAMINOPHEN INJECTION 100 ML IVPB ONE (08:54)
[2022-09-24] MEDS: ACETAMINOPHEN 1000 MG/100 ML BAG IVPB PRN ×2 (09:05→22:03)
[2022-09-24] MEDS ORDERED: CARVEDILOL 3.125 MG TABLET (FP) ONE (09:07)
[2022-09-24] MEDS ORDERED: AMIODARONE HCL 200 MG TABLET ONE (09:08)
[2022-09-24] MEDS ORDERED: SACUBITRIL/VALSARTAN 24 MG-26 MG TABLET ONE (09:08)
[2022-09-24] MEDS ORDERED: ASPIRIN 81 MG CHEWABLE TABLETS ONE (09:08)
[2022-09-24] MEDS: ASPIRIN 81 MG CHEWABLE TABLETS PO SCH (09:47)
[2022-09-24] MEDS: CARVEDILOL 3.125 MG TABLET (FP) PO SCH ×2 (09:47→22:05)
[2022-09-24] MEDS: SACUBITRIL/VALSARTAN 24 MG-26 MG TABLET PO SCH ×2 (09:47→22:04)
[2022-09-24] MEDS: SEVELAMER CARBONATE 800 MG TAB (FP) PO SCH ×3 (09:47→17:17)
[2022-09-24] MEDS: AMIODARONE HCL 200 MG TABLET PO SCH (09:47)
[2022-09-24] MEDS ORDERED: BUDESONIDE/FORMETEROL FUMARATE 160/4.5 mcg INHALER IH SCH (10:00)
[2022-09-24 11:24] LABS: BASO % 0.8 % (0-2.0); EOS % 3.1 % (0-4.5); HEMATOCRIT 38.4 % (32.4-45.2); LYMPH % 21.5 % (8-40); MCH 27.6 pg (25.7-33.7); MCHC 31.2 g/dl (32.0-36.0); MEAN CELL VOLUME 88.4 fl (80-96); MONO % 17.4 % (3.8-10.2); NEUT % 57.2 % (42.8-82.8); PLATELET COUNT 104 10^3/uL (134-434); RBC 4.34 M/mm3 (3.60-5.2); RDW 26.5 % (11.6-15.6); WHITE BLOOD COUNT 4.4 K/mm3 (4.0-10.0)
[2022-09-24 11:50] LABS: CALCIUM 8.1 mg/dL (8.5-10.1)
[2022-09-24 11:51] LABS: ALBUMIN 2.9 g/dl (3.4-5.0); MAGNESIUM 2.4 mg/dL (1.8-2.4)
[2022-09-24 11:53] LABS: CREATININE 5.4 mg/dL (0.55-1.3)
[2022-09-24 11:54] LABS: PHOSPHOROUS 4.2 mg/dL (2.5-4.9)
[2022-09-24 11:55] LABS: BILIRUBIN,TOTAL 0.4 mg/dL (0.2-1); TOT PROT 6.6 g/dl (6.4-8.2)
[2022-09-24] MEDS ORDERED: HEPARIN NA (PORCINE) 5,000 UNITS/ML 1ML VIAL IVPUSH PRN ×2 (11:59)
[2022-09-24] MEDS ORDERED: HEPARIN INFUSION - 25,000 UNITS/500 ML INFUS.BAG IVPB SCH (12:00)
[2022-09-24] MEDS ORDERED: HEPARIN INFUSION - 25,000 UNITS/500 ML INFUS.BAG IVPB ONE (12:22)
[2022-09-24] MEDS ORDERED: SODIUM CHLORIDE 250 ML IV PRN (12:31)
[2022-09-24] MEDS ORDERED: PANTOPRAZOLE SODIUM 40 MG VIAL IVPUSH SCH (22:00)
[2022-09-24] MEDS: DOCUSATE SODIUM 100 MG CAPSULE (FP) PO SCH (22:04)
[2022-09-24] MEDS: ATORVASTATIN CA 80 MG TABLET (FP) PO SCH (22:04)
[2022-09-24] MEDS: MELATONIN 5 MG TABLETS PO SCH (22:04)
[2022-09-24] MEDS: MIRTAZAPINE 15 MG TABLET (FP) PO SCH (22:05)
[2022-09-25] MEDS: LACTATED RINGERS SOLUTION 1,000 ML/1,000 ML INFUS.BAG IV SCH (05:58)
[2022-09-25 07:47] LABS: BASO % 1.1 % (0-2.0); EOS % 3.6 % (0-4.5); HEMATOCRIT 41.6 % (32.4-45.2); HEMOGLOBIN 13.1 GM/dL (10.7-15.3); LYMPH % 14.5 % (8-40); MCH 27.6 pg (25.7-33.7); MCHC 31.4 g/dl (32.0-36.0); MEAN PLT VOLUME 10.1 fl (7.5-11.1); MONO % 14.9 % (3.8-10.2); NEUT % 65.9 % (42.8-82.8); PLATELET COUNT 123 10^3/uL (134-434); RBC 4.73 M/mm3 (3.60-5.2); RDW 26.3 % (11.6-15.6); WHITE BLOOD COUNT 4.9 K/mm3 (4.0-10.0)
[2022-09-25 07:57] LABS: POTASSIUM 3.3 mmol/L (3.5-5.1)
[2022-09-25 08:01] LABS: ALBUMIN 3.1 g/dl (3.4-5.0); BLOOD UREA NITROGEN 26.9 mg/dL (7-18); CALCIUM 8.3 mg/dL (8.5-10.1); MAGNESIUM 2.4 mg/dL (1.8-2.4)
[2022-09-25 08:05] LABS: CREATININE 5.1 mg/dL (0.55-1.3)
[2022-09-25 08:06] LABS: BILIRUBIN,TOTAL 0.5 mg/dL (0.2-1)
[2022-09-25] MEDS ORDERED: POTASSIUM CHLORIDE ORAL LIQUID 20 MEQ/15 ML PO ONE (08:08)
[2022-09-25] MEDS: DOCUSATE SODIUM 100 MG CAPSULE (FP) PO SCH ×2 (09:37→22:51)
[2022-09-25] MEDS: AMIODARONE HCL 200 MG TABLET PO SCH (09:37)
[2022-09-25] MEDS: SEVELAMER CARBONATE 800 MG TAB (FP) PO SCH ×3 (09:37→17:58)
[2022-09-25] MEDS: ASPIRIN 81 MG CHEWABLE TABLETS PO SCH (09:37)
[2022-09-25] MEDS: SACUBITRIL/VALSARTAN 24 MG-26 MG TABLET PO SCH ×2 (09:39→22:51)
[2022-09-25] MEDS: PANTOPRAZOLE 40 MG TABLET PO SCH (09:39)
[2022-09-25] MEDS: CARVEDILOL 3.125 MG TABLET (FP) PO SCH ×2 (10:00→22:50)
[2022-09-25] MEDS ORDERED: SPIRONOLACTONE 25 MG TABLET PO SCH (10:15)
[2022-09-25] MEDS ORDERED: SODIUM CHLORIDE 250 ML IV PRN (12:11)
[2022-09-25] MEDS ORDERED: SODIUM CHLORIDE 250 ML IV STA (16:16)
[2022-09-25] MEDS: ACETAMINOPHEN 500 MG TABLET (FP) PO SCH ×2 (17:57→22:50)
[2022-09-25] MEDS: MIRTAZAPINE 15 MG TABLET (FP) PO SCH (22:49)
[2022-09-25] MEDS: MELATONIN 5 MG TABLETS PO SCH (22:50)
[2022-09-25] MEDS: ATORVASTATIN CA 80 MG TABLET (FP) PO SCH (22:51)
[2022-09-26] MEDS: ACETAMINOPHEN 500 MG TABLET (FP) PO SCH ×2 (04:51→10:30)
[2022-09-26 08:13] LABS: POTASSIUM 4.3 mmol/L (3.5-5.1)
[2022-09-26 08:26] LABS: EOS % 3.7 % (0-4.5); HEMATOCRIT 41.5 % (32.4-45.2); LYMPH % 23.4 % (8-40); MCH 27.6 pg (25.7-33.7); MCHC 31.2 g/dl (32.0-36.0); MEAN CELL VOLUME 88.5 fl (80-96); MEAN PLT VOLUME 9.6 fl (7.5-11.1); MONO % 17.1 % (3.8-10.2); NEUT % 54.8 % (42.8-82.8); PLATELET COUNT 127 10^3/uL (134-434); RBC 4.69 M/mm3 (3.60-5.2); RDW 26.3 % (11.6-15.6); WHITE BLOOD COUNT 4.6 K/mm3 (4.0-10.0)
[2022-09-26 08:35] LABS: ALBUMIN 3.1 g/dl (3.4-5.0); BLOOD UREA NITROGEN 41.6 mg/dL (7-18); CALCIUM 9.3 mg/dL (8.5-10.1); MAGNESIUM 2.8 mg/dL (1.8-2.4)
[2022-09-26 08:38] LABS: CREATININE 6.9 mg/dL (0.55-1.3); PHOSPHOROUS 6.5 mg/dL (2.5-4.9)
[2022-09-26 08:39] LABS: BILIRUBIN,TOTAL 0.5 mg/dL (0.2-1)
[2022-09-26 08:40] LABS: TOT PROT 7.1 g/dl (6.4-8.2)
[2022-09-26] MEDS: SEVELAMER CARBONATE 800 MG TAB (FP) PO SCH ×2 (09:00→14:20)
[2022-09-26 09:57] VITALS: RESP 18; TEMP 98.5
[2022-09-26] MEDS: SACUBITRIL/VALSARTAN 24 MG-26 MG TABLET PO SCH (10:00)
[2022-09-26] MEDS: CARVEDILOL 3.125 MG TABLET (FP) PO SCH (10:00)
[2022-09-26 10:41] LABS: HEMATOCRIT 38.1 % (32.4-45.2); MCH 27.8 pg (25.7-33.7); MCHC 31.6 g/dl (32.0-36.0); MEAN CELL VOLUME 88.1 fl (80-96); MEAN PLT VOLUME 9.5 fl (7.5-11.1); PLATELET COUNT 125 10^3/uL (134-434); RBC 4.32 M/mm3 (3.60-5.2); RDW 25.9 % (11.6-15.6); WHITE BLOOD COUNT 3.9 K/mm3 (4.0-10.0)
[2022-09-26 10:58] LABS: POTASSIUM 3.9 mmol/L (3.5-5.1)
[2022-09-26 11:31] LABS: CALCIUM 9.2 mg/dL (8.5-10.1)
[2022-09-26 11:32] LABS: BLOOD UREA NITROGEN 44.7 mg/dL (7-18)
[2022-09-26 11:35] LABS: CREATININE 7.1 mg/dL (0.55-1.3)
[2022-09-26 13:05] VITALS: BP 100/70; PULSE 61
[2022-09-26] MEDS: AMIODARONE HCL 200 MG TABLET PO SCH (14:19)
[2022-09-26] MEDS: DOCUSATE SODIUM 100 MG CAPSULE (FP) PO SCH (14:20)
[2022-09-26] MEDS: ASPIRIN 81 MG CHEWABLE TABLETS PO SCH (14:20)
[2022-09-26] MEDS: PANTOPRAZOLE 40 MG TABLET PO SCH (14:20)
== END 2022-09-26 15:44 | disposition home or self-care (01) ==
LOC: JER 21:56 → JERBED 09-24 01:25 → J4W 09-24 16:26
PROVIDERS: ADMIT Internal Medicine; ATTEND Internal Medicine
PROC: 3E033NZ Introduction of Analgesics, Hypnotics, Sedatives into Peripheral Vein, Percutaneous Approach (ICD-10-PCS; principal; 2022-09-24)
PROC: 3E033GC Introduction of Other Therapeutic Substance into Peripheral Vein, Percutaneous Approach (ICD-10-PCS; 2022-09-24)
PROC: 3E0333Z Introduction of Anti-inflammatory into Peripheral Vein, Percutaneous Approach (ICD-10-PCS; 2022-09-24)
PROC: 3E0337Z Introduction of Electrolytic and Water Balance Substance into Peripheral Vein, Percutaneous Approach (ICD-10-PCS; 2022-09-24)
DX: I48.0 Paroxysmal atrial fibrillation (principal); I11.0 Hypertensive heart disease with heart failure; R07.9 Chest pain, unspecified; R10.13 Epigastric pain; N18.6 End stage renal disease; Z99.2 Dependence on renal dialysis; I50.9 Heart failure, unspecified; E78.00 Pure hypercholesterolemia, unspecified; I71.40 Abdominal aortic aneurysm, without rupture, unspecified; D69.6 Thrombocytopenia, unspecified; Z29.8 Encounter for other specified prophylactic measures; R04.0 Epistaxis
CPT/HCPCS: 36415; 71045-TC-FY; 71275-TC; 74174-TC; 80048; 80053; 80061; 83605; 83690; 83735; 84100; 84443; 84484; 85025; 85027; 85610; 85730; 86803; 87340; 93005; 93010; 93306-TC; 96361; 96365; 96375; 96376; 99285-25; G0378; J1644